=== PATIENT | female | born 1940 | race Caucasian/White ===

== ENCOUNTER → 2017-08-31 | Outpatient (CLI) | payer OTHER, BC | LOC: FIMAGING 10:35 | PROVIDERS: ATTEND Anesthesiology | DX: Z01.811 Encounter for preprocedural respiratory examination (principal); Z01.818 Encounter for other preprocedural examination; M51.26 Other intervertebral disc displacement, lumbar region ==

== ENCOUNTER 2017-09-01 05:29 | Inpatient (IN) | payer OTHER, BC ==
[2017-08-31 11:11] LABS: PLATELET COUNT 339 10^3/uL (150-400)
--- NOTE | 2017-08-31 11:52 | CPEKG ---
Heart Rate: 97 RR Interval: 619 P-R Interval: 240 QRSD Interval: 98 QT Interval: 340 QTC Interval: 432 P [place]: 54 QRS [place]: -52 T Wave [place]: 30 EKG Severity - ABNORMAL ECG - EKG Impression: SINUS RHYTHM EKG Impression: FIRST DEGREE AV BLOCK EKG Impression: LAD, CONSIDER LAFB OR INFERIOR INFARCT EKG Impression: PROBABLE LEFT VENTRICULAR HYPERTROPHY EKG Impression: ANTERIOR Q WAVES, POSSIBLY DUE TO LVH Electronically Signed By: Asim Valdez 01-Sep-2017 10:48:11
[2017-09-01] MEDS ORDERED: LR 1,000 ML IV ONE (06:08)
[2017-09-01] MEDS ORDERED: THROMBIN (BOVINE) 20,000 UNIT VIAL TP ONE (06:24)
[2017-09-01] MEDS ORDERED: BUPIVACAINE 0.25% 30 ML SDV ONE (06:24)
[2017-09-01] MEDS ORDERED: CHLORHEXIDINE GLUC HIBICLENS 118 ML BTL TP ONE (06:24)
[2017-09-01] MEDS ORDERED: CITRATE DEXTROSE SOLN 500 ML BAG ONE (06:25)
[2017-09-01] MEDS ORDERED: EPINEPHrine 1 MG/ML INJ ONE (06:25)
[2017-09-01] MEDS ORDERED: BACITRACIN 50,000 UNITS/10 ML SYR IRR ONE ×3 (06:25→11:05)
--- NOTE | 2017-09-01 06:42 | PDHPUP ---
History & Physical Update H&P update statement: This history and physical update is based on an assessment of the patient which was completed after admission or registration (within 24 hours), but prior to the surgery/procedure. H&P update: H&P reviewed & patient examined, no change in patient's condition since H&P completed
--- NOTE | 2017-09-01 06:56 | PDANEPAE ---
ANE History of Present Illness 76 yo tlif ANE Past Medical History - Cardiovascular History Hx Hypertension: Yes Hx Arrhythmias: No Hx Chest Pain: No Hx Coronary Artery / Peripheral Vascular Disease: No Hx CHF / Valvular Disease: No Hx Palpitations: No Cardiovascular History Comment: HEART BEATS TO FAST - Pulmonary History Hx COPD: No Hx Asthma/Reactive Airway Disease: No Hx Recent Upper Respiratory Infection: No Hx Oxygen in Use at Home: No Hx Sleep Apnea: No Sleep Apnea Screening Result - Last Documented: Negative Pulmonary History Comment: CHRONIC COUGH PAST YEAR HAS SEEN MULTIPLE MD'S NO DX MADE. WHEN SHE TAKES ANTIBIOTIC MAKES THE COUGH BETTER MUCOUS WAS GREEN HAS BEEN CLEAR PAST MONTH. PREV BRONCH NOT COMPLETED DO TO BLOOD PRESSURE DROPING WAS BACTERIAL INFECTION - Neurologic History Hx Cerebrovascular Accident: No Hx Seizures: No Hx Dementia: No - Endocrine History Hx Diabetes: No - Renal History Hx Renal Disorders: No - Liver History Hx Hepatic Disorders: No - Neurological & Psychiatric Hx Hx Neurological and Psychiatric Disorders: Yes Neurological / Psychiatric History Comment: DEPRESSION - Cancer History Hx Cancer: Yes Cancer History Comment: SKIN - Congenital Disorder History Hx Congenital Disorders: No - GI History Hx Gastrointestinal Disorders: Yes Gastrointestinal History Comment: INTERMITTENT REFLUX IF EATS TO LATE AT NIGHT WILL USE TUMS. CONSTIPATION WILL USE FLEETS ENEMA OR LAXATIVE - Other Health History Other Health History: NO FEELING FROM WAIST DOWN ON RT SIDE. PSORIATIC ARTHRITIS DX 1999. LAST FLARE UP YRS AGO. SJOGRENS. RHEUMATOID ARTHRITIS - Chronic Pain History Chronic Pain: Yes (LOWER LUMBAR AND ABIGAIL) - Surgical History Prior Surgeries: BRONCHOSCOPY 01/2017 IN [place]. REMVL THORACIC HARDWARE AND POST INFECTION I&D 2014. LUMBAR FUSION 04/2012. REMVL SALIVARY GLAND. REMVL ORAL CYSTS. SINUS. LT HEEL REMVL GROWTH. RT BUNION AND HAMMER TOE. LAP TRISTEN. ABIGAIL CATARACT ANE Review of Systems Review of Systems: - Exercise capacity METS (RN): 1 METS ANE Patient History - Allergies Allergies/Adverse Reactions: levofloxacin [From Levaquin] Allergy (Severe, Verified 09/28/13 15:37) Rash diphenhydramine HCl [From Benadryl] Allergy (Intermediate, Verified 09/28/13 15: 37) Other-Enter Comments sulfamethoxazole [From Bactrim] Allergy (Intermediate, Verified 09/28/13 15:37) Rash trimethoprim [From Bactrim] Allergy (Intermediate, Verified 09/28/13 15:37) Rash adhesive tape Allergy (Verified 08/30/17 10:20) Itching - Home Medications Home Medications: Metoprolol Tartrate [Lopressor 50 mg (*)] 50 mg PO BID 09/13/14 [Last Taken 08:00] Acetaminophen [Tylenol ES 500 mg (*)] 500 mg PO Q6 PRN 08/30/17 [Last Taken Unknown] Clarithromycin [Biaxin (*)] 500 mg PO BID 08/30/17 [Last Taken Unknown] DULoxetine [Cymbalta 60 MG (*)] 60 mg PO DAILY 08/30/17 [Last Taken Unknown] Hydrocodone/APAP 5/325 [[place] 5/325] 1 each PO DAILY PRN 08/30/17 [Last Taken Unknown] Melatonin [Melatonin 3 MG (*)] 15 mg PO HS 08/30/17 [Last Taken Unknown] predniSONE 5 mg PO DAILY 08/30/17 [Last Taken Unknown] riTUXimab [Rituxan 500mg (*)] 0 mg IV .[id number] 08/30/17 [Last Taken Unknown] - Smoking Hx Smoking Status: Never smoked - Family Anes Hx Family Hx Anesthesia Complications: NEG ANE Labs/Vital Signs - Labs Result Diagrams: 08/31/17 10:57 - Vital Signs Height: 5 ft 6.5 in Weight: 81.647 kg ANE Physical Exam - Airway Neck exam: FROM Mallampati Score: Class 2 Mouth exam: normal dental/mouth exam - Pulmonary Pulmonary: no respiratory distress - ASA Status ASA Status: II ANE Anesthesia Plan Anesthesia Plan: general endotracheal anesthesia
[2017-09-01] MEDS ORDERED: MIDAZOLAM 2 MG/2 ML VIAL IVP ONE (06:57)
[2017-09-01] MEDS ORDERED: PROPOFOL/EMULSION 500 MG/50 ML BOTTLE IV ONE ×2 (07:06→09:06)
[2017-09-01] MEDS ORDERED: ALBUMIN 5% 250 ML BOTTLE IV ONE (07:22)
[2017-09-01] MEDS ORDERED: fentaNYL 100 MCG/2 ML INJ IT ONE ×2 (09:00→10:45)
[2017-09-01] MEDS ORDERED: morphINE PF 1 MG/2 ML AMP IT ONE (09:00)
[2017-09-01] MEDS ORDERED: NALOXONE HCL 0.4 MG/ML INJ IVP PRN ×2 (11:38→11:53)
[2017-09-01] MEDS ORDERED: fentaNYL 100 MCG/2 ML INJ IVP PRN (11:38)
[2017-09-01] MEDS ORDERED: DIAZEPAM 5 MG/ML 1 ML SYR IVP PRN (11:38)
[2017-09-01] MEDS ORDERED: HYDROmorphONE/DILAUDID 2 MG/ML INJ IVP PRN (11:38)
[2017-09-01] MEDS ORDERED: ONDANSETRON 4 MG/2 ML VIAL IVP PRN ×2 (11:38→11:53)
[2017-09-01] MEDS ORDERED: LACTULOSE 20 GM/30 ML UDCUP PO PRN (11:53)
[2017-09-01] MEDS ORDERED: diphenhydrAMINE 25 MG CAP PO PRN (11:53)
[2017-09-01] MEDS ORDERED: ONDANSETRON DISINTEGRATING 4 MG TAB PO PRN (11:53)
[2017-09-01] MEDS ORDERED: METHOCARBAMOL 750 MG TAB PO PRN (11:53)
[2017-09-01] MEDS ORDERED: BISACODYL 10 MG SUPP PR PRN (11:53)
[2017-09-01] MEDS ORDERED: MAGNESIUM HYDROXIDE 30 ML UDCUP PO PRN (11:53)
[2017-09-01] MEDS ORDERED: morphINE PCA 30 MG/30 ML PCA IV PRN (11:53)
[2017-09-01] MEDS ORDERED: NS 1,000 ML IV SCH (12:00)
--- NOTE | 2017-09-01 12:00 | SOAPPROG ---
SOAP Progress Note Assessment/Plan: Assessment: 76 yo F sp L3-L5 hardware removal L3-S1 fusion with L5/S1 TLIF Plan: stable to 3N PT/OT LSO brace when out of bed lovenox starts POD #1 please call with neuro changes 09/01/17 11:58 Subjective: + back pain, no leg pain. Objective: Vital Signs Temp Pulse Resp BP Pulse Ox 36.7 C 73 14 133/79 H 93 09/01/17 07:19 09/01/17 07:19 09/01/17 07:19 09/01/17 07:19 09/01/17 07:19 Laboratory Results 08/31/17 10:57 somnolent PERRL, EOMI, no facial droop ALPHONSO x 4 + light touch ICD10 Worksheet Patient Problems: Problems Problem Status Onset Fusion of spine of lumbar region Acute Degenerative disc disease, lumbar Acute - ICD10 Problem Qualifiers (1) Fusion of spine of lumbar region
--- NOTE | 2017-09-01 12:01 | POSTOPPROG ---
Post Op Note Date of Operation: 09/01/17 Surgeon: Kaleb Ellison Stone Banker: Bobby Anesthesiologist: Amee Anesthesia: GET(General Endotracheal) Pre-op Diagnosis: L5/S1 DJD/HNP Post-op Diagnosis: same Indication: low back pain, leg pain, weakness Procedure: Hardware removal L3-5, L3-S1 instrumentation with L5/S1 TLIF Findings: DJD/stenosis Inf/Abcess present in the surg proc area at time of surgery?: No EBL: 50-100 Complications: None Drains: Kasi [place]
--- NOTE | 2017-09-01 12:54 | GOP ---
[f rep st] OPERATIVE REPORT DATE OF OPERATION: 09/01/2017 SURGEON: Kaleb Ellison MD NEUROSURGEON: Kaleb Ellison MD BEDSPREAD CUTTER HAND: BENJY Granados. ANESTHESIA: General endotracheal. PREOPERATIVE DIAGNOSIS: Severe adjacent level degeneration and disk space collapse with massive disk herniation at L5-S1 and cauda equina syndrome with progressive loss of neurologic function. POSTOPERATIVE DIAGNOSIS: Severe adjacent level degeneration and disk space collapse with massive dis k herniation at L5-S1 and cauda equina syndrome with progressive loss of neurologic function. PROCEDURE PERFORMED: Removal of posterior segmental (pedicle screw and axle device) fixation from L3 to L5 with re-instrumentation from L3 through S1 and exploration of spinal fusion at L1-2. Right-si ded far lateral transpedicular decompression at the L5-S1 level with a redo right L4-5 posterior collin laminectomy and foraminotomy. L5-S1 posterior/transforaminal lumbar interbody fusion with 2 structur al PEEK interbody spacers, local autograft and bone morphogenic protein. Re-instrumentation from L3 through S1 tied into the existing prior instrumentation. Posterior lateral fusion at L5-S1, with loc al autograft and bone morphogenic protein. Use of intraoperative microscopy, fluoroscopy and compute r volumetric stereotactic navigation with intraoperative neurophysiologic testing. Injection of intr athecal narcotic analgesics and subcutaneous and intramuscular local anesthesia for postoperative alexis n control. FINDINGS: ESTIMATED BLOOD LOSS: 250 cc. INDICATIONS: The patient is a 76-year-old woman with intractable right greater than left lower extre mity radicular and neurogenic claudication symptoms and loss of motor function, as well as bladder dy sfunction secondary to a massive L5-S1 disk herniation at the adjacent level, status post a prior mul tilevel thoracolumbar fusion extending down to L5 with instrumentation. The patient presents now for urgent surgical decompression, stabilization, and extension of the fusion from the upper levels. DESCRIPTION OF PROCEDURE: After informed consent was obtained, the patient was taken to the operatin g room and placed in the prone position on the Kasi table. The thoracolumbosacral area was preppe d and draped in a sterile fashion. After fluoroscopic localization of the correct level, the subcuta neous and intramuscular tissues were infiltrated with local anesthesia. A midline linear incision wa s then created from approximately L3-S1. This was carried down to the fascial layer, which was then incised using monopolar electrocautery and carried in a subperiosteal plane along the spinous process es and lamina bilaterally. Intraoperative fluoroscopy was again utilized to verify the correct level s. Following this, the dissection was carried out over the facet joints at L5-S1 and over the screws and rods at the upper levels to L3. There was a gap in the senthil between L2 and L3 that allowed for p lacing connecting devices, and the rods were cut just above L3. Following this, the extensive scar t issue was carefully dissected out and, under high-power microscopy, a right-sided L5-S1 far lateral t ranspedicular decompression was performed with complete unroofing of the facet joint and neural ac hector at both L5 and S1. A redo posterior hemilaminectomy and foraminotomy was performed at the L4-5 l evel on the right as well. The microscope was angled across the midline and bilateral decompression was performed. The [place] 4 was utilized to carefully retract the S1 and L5 nerve roots in order t o identify the massive disk herniation that was extruded rostrally, caudally and posteriorly into the axilla of the nerve root, as well as the shoulder, and basically everywhere. This was extremely lar ge and was meticulously removed in all areas for a complete decompression of the thecal sac and bilat eral nerve roots. Following this, the wound was copiously irrigated with antibiotic irrigation, and meticulous hemostasis was achieved. The [employer] neuronavigational system was then brought in, and us ing computer volumetric stereotactic navigation, the pedicles were placed at L3, L4, L5 and S1. Each individual screw was tested neurophysiologically with monopolar electrostimulation and interpretatio n of the potentials by the surgeon. Rods were then placed across the L5-S1 levels under distraction, during which time a complete diskectomy was performed with preparation of endplates and placement of two 8 mm structural PEEK interbody spacers, along with bone morphogenic protein and morselized autog raft. Note that it was very difficult to place the graft due to the amount of collapse, and in placi ng the 2nd graft the 1st graft popped forward slightly, anterior to the spine. I felt that it was in the best interest of the patient to leave it there, based on past experience with this and as well a s publishing, and to obtain a CT scan postoperatively to evaluate any vascular compression or other i ssues. The small rods were then removed at the L5-S1 level, and a larger senthil extending from L3-S1 wi th the connection devices connecting to the prior senthil extending more rostrally. These were all torqu ed to the heat treating furnace tender's specifications, and the wound was again copiously irrigated with antibiotic irrigation. Meticulous hemostasis was achieved. The remaining lamina and facet joints, mainly on th e left at the L5-S1 level, were extensively decorticated, and the residual local autograft along with bone morphogenic protein was placed at the L5-S1 level and also extending up into the L4 and L3 leve ls so as to tie it into the existing fusion. An axial device was placed at the L5-S1 level for added fixation and to avoid junctional kyphosis. A drain was placed. The wound was closed in layered fas hion using interrupted Vicryl sutures, followed by Steri-Strips on the skin. COMPLICATIONS: None. DISPOSITION: The patient is currently in the process of being repositioned for extubation. Note jumana t I placed 200 mcg of Duramorph along with 50 mcg of fentanyl intrathecally for postoperative pain co ntrol. /[id number]/MODL
--- NOTE | 2017-09-01 13:29 | POSTANESTH ---
Post Anesthetic Evaluation Cardiovascular Status: Normal, Stable Respiratory Status: Similar to Pre-op Cond. Level of Consciousness/Mental Status: Can Participate in Eval Pain Control: Adequate, Prn Tx Ordered Nausea/Vomiting Control: Adequate, Prn Tx Ordered Complications Possibly Related to Anesthesia: None Noted
[2017-09-01] MEDS: ceFAZolin 2 GM/DEXTROSE 100 ML IV SCH ×2 (13:46→22:45)
[2017-09-01] MEDS: GABAPENTIN 300 MG CAP PO SCH ×2 (13:49→22:46)
[2017-09-01] MEDS: ACETAMINOPHEN 500 MG TAB PO SCH ×2 (13:51→22:45)
[2017-09-01] MEDS ORDERED: ceFAZolin 2 GM/DEXTROSE 100 ML IV SCH ×2 (14:00)
--- NOTE | 2017-09-01 15:05 | PDMN ---
Medical Necessity Medical necessity: [facility] IP only surgery; cpt 82460 L5/S1 TLIF w/L3-5 hardware removal
[2017-09-01] MEDS: POLYETHYLENE GLYCOL 3350 17 GM PKT PO SCH ×2 (15:26→22:46)
[2017-09-01] MEDS: morphINE SR 15 MG TAB PO SCH (22:44)
[2017-09-01] MEDS: FAMOTIDINE 20 MG TAB PO SCH (22:44)
[2017-09-01] MEDS: SENNOSIDES/DOCUSATE SODIUM TAB PO SCH (22:45)
[2017-09-02 05:29] LABS: PLATELET COUNT 242 10^3/uL (150-400)
[2017-09-02] MEDS: ACETAMINOPHEN 500 MG TAB PO SCH ×3 (05:41→21:13)
[2017-09-02] MEDS: GABAPENTIN 300 MG CAP PO SCH ×3 (05:41→21:11)
--- NOTE | 2017-09-02 07:27 | NEUSURGPN ---
Date of Surgery: 09/01/17 Post Op Day: 1 Assessment/Plan: 76 yo female s/p L3-L5 hardware removal and L3-S1 fusion with TLIF at L5/S1, history of T10-L5 fusion - neuro checks - pain control - PT/OT - wear brace when out of bed - postop x-rays pending - BRITTANY drain x 1 - SCDs/TEDs, Lovenox - contact neurosurgery with any changes in neuro status/exam Subjective: No lower extremity pain, numbness, tingling. Admits to localized back pain. Objective: Awake. Alert. PERRL. EOMI Facial expression symmetrical Muscle strength full at 5/5 Sensation intact - Physician Discussed Patient with : [facility] Physical Exam - Vitals, I&O, Labs I and O 09/01/17 09/02/17 09/03/17 05:59 05:59 05:59 Intake Total 2200 Output Total 2115 Balance 85 Weight 81.647 kg Intake: Oral (ml) 200 IV Intake (ml) 2000 Output: Urine (ml) 1550 Catheter 1550 Estimated Blood Loss (ml) 200 BRITTANY Drain Output (ml) 365 #1 Posterior Back Kasi 365 [place] Other: Intake Quantity Yes Sufficient Vital Signs Temp Pulse Resp BP Pulse Ox 36.7 C 82 18 107/75 97 09/02/17 04:11 09/02/17 04:11 09/02/17 04:11 09/02/17 04:11 09/02/17 04:11 Laboratory Results 09/02/17 04:40 09/02/17 04:40 ICD10 Worksheet Patient Problems: Problems Problem Status Onset Fusion of spine of lumbar region Acute Degenerative disc disease, lumbar Acute
[2017-09-02] MEDS: ENOXAPARIN 40 MG/0.4 ML SYR SC SCH (09:01)
[2017-09-02] MEDS: morphINE SR 15 MG TAB PO SCH ×2 (09:02→21:13)
[2017-09-02] MEDS: DULoxetine 60 MG CAP PO SCH (09:02)
[2017-09-02] MEDS: FAMOTIDINE 20 MG TAB PO SCH ×3 (09:03→21:23)
[2017-09-02] MEDS: SENNOSIDES/DOCUSATE SODIUM TAB PO SCH ×2 (09:03→21:12)
[2017-09-02] MEDS: predniSONE 5 MG TAB PO SCH (09:03)
[2017-09-02] MEDS: POLYETHYLENE GLYCOL 3350 17 GM PKT PO SCH ×4 (09:07→21:30)
[2017-09-02] MEDS: METOPROLOL TARTRATE 50 MG TAB PO SCH ×2 (09:51→21:13)
--- NOTE | 2017-09-02 11:26 | ASMTCASEMG ---
Living Arrangements What is your living Answers: With Spouse arrangement? Who do you live with? Type Of Residence What kind of residence do Answers: House you live in? Discharge Plan Comments Coordination Status Comments Notes: CM met w/ pt, pts and daughter for dispo planning. PT is recommending home w/ 24hr supervision. Pts daughter reports that someone will be w/ pt at all times. Pt will continue to work w/ therapies during her time here. Pt is from [place], [place]. CM available for changes. Plan: Independent Date Signed: 09/02/2017 11:26 AM Electronically Signed By:LLOYD Ochoa
[2017-09-02] MEDS: MELATONIN 3 MG TAB PO SCH ×2 (21:11→21:22)
[2017-09-03] MEDS: ACETAMINOPHEN 500 MG TAB PO SCH ×3 (05:19→22:00)
[2017-09-03] MEDS: GABAPENTIN 300 MG CAP PO SCH ×3 (05:20→22:00)
--- NOTE | 2017-09-03 09:31 | SOAPPROG ---
SOAP Progress Note Assessment/Plan: Assessment: 76 yo F POD #2 L3-L5 hardware removal L3-S1 fusion with L5/S1 TLIF Plan: stable and doing well overall :) scd/kandy/lovenox for dvt prophylaxis PT/OT LSO brace when out of bed post op x-rays look good patient will likely need Snf rehab in [place] please call with neuro changes discussed with Dr Post 09/01/17 11:58 09/03/17 09:28 Subjective: back pain improving, leg numbness improving. Objective: Vital Signs Temp Pulse Resp BP Pulse Ox 37.2 C 98 18 120/73 95 09/03/17 04:11 09/03/17 04:11 09/03/17 04:11 09/03/17 04:11 09/03/17 04:11 Laboratory Results 09/02/17 04:40 09/02/17 04:40 09/02/17 09/03/17 09/04/17 05:59 05:59 05:59 Intake Total 2200 1800 Output Total 2115 2718 Balance 85 -918 AAOx4, +FC PERRL, EOMI, no facial droop 5/5 except bilat DF 4/5, right PF 4/5 + light touch C/D/I ICD10 Worksheet Patient Problems: Problems Problem Status Onset Fusion of spine of lumbar region Acute Degenerative disc disease, lumbar Acute - ICD10 Problem Qualifiers (1) Fusion of spine of lumbar region
[2017-09-03] MEDS: DULoxetine 60 MG CAP PO SCH (09:38)
[2017-09-03] MEDS: ENOXAPARIN 40 MG/0.4 ML SYR SC SCH (09:38)
[2017-09-03] MEDS: FAMOTIDINE 20 MG TAB PO SCH ×2 (09:39→22:00)
[2017-09-03] MEDS: predniSONE 5 MG TAB PO SCH (09:39)
[2017-09-03] MEDS: SENNOSIDES/DOCUSATE SODIUM TAB PO SCH ×2 (09:39→22:03)
[2017-09-03] MEDS: POLYETHYLENE GLYCOL 3350 17 GM PKT PO SCH ×3 (09:40→22:04)
[2017-09-03] MEDS: METOPROLOL TARTRATE 50 MG TAB PO SCH ×2 (09:42→22:00)
[2017-09-03] MEDS: morphINE SR 15 MG TAB PO SCH ×2 (09:45→22:03)
[2017-09-03] MEDS: METHOCARBAMOL 500 MG TAB PO PRN (14:52)
--- NOTE | 2017-09-03 18:38 | ASMTCMCOM ---
CM Note CM Note Notes: Reviewed chart, spoke with PARESH Lion regarding discharge plan of care, pt's progress. Per Amisha, pt to discharge in next few days, pt and family requesting SNF placement in [place], [place]. Spoke with pt's , Aime and dghtrNayeli. Family requesting a transfer to [facility] in [place], [place] . Call placed to Lurdes Fung to verify Medicare rules regarding family transfer to facility in another location and/or out of state. Per Lurdes, pt able to transfer if facility is willing to accept and with a PCP to provide additional orders. Per , pt's PCP is Dr. Meraz in [place], [place] . Call placed to [facility]. Per organ recovery coordinator, [facility] is a hospital with an acute inpt rehab - pt must meet certain qualifications for inpt rehab. Update provided to family. Per family, facility also has a SNF. Family would like to see pt transfer in next day or so - pt's dghtr has to return to work on Tuesday09/06/17. Call placed to hospitalist line at [facility] , spoke with amelia [facility] admin. Per Siva, he knows the family and feels she will likely qualify. Siva states UR/admissions is unavailable to accept/authorize transfer until Tuesday09/06/17. UR number obtained. CM to contact Jenni on Tuesday09/06/17 at . Referral and orders can be faxed to . If Jenni is unavailable, CM can contact Hector, the UR data assistant at . amelia [place] admin can be reached at . Siva said he will attempt to start authorization/admission process sooner and will contact CM on Tuesday09/04/17 with an update. Update provided to pt and family. CM to call gennaro Tyler with any further questions. CM will continue to follow. Current Discharge Plan: [facility], [facility] Date Signed: 09/03/2017 06:38 PM Electronically Signed By:Clara Nguyen RN
[2017-09-03] MEDS: MELATONIN 3 MG TAB PO SCH (22:03)
[2017-09-04] MEDS: GABAPENTIN 300 MG CAP PO SCH ×3 (05:49→21:02)
[2017-09-04] MEDS: oxyCODONE IR 5 MG TAB PO PRN ×2 (05:51→22:52)
[2017-09-04] MEDS: ACETAMINOPHEN 500 MG TAB PO SCH ×3 (06:04→21:01)
--- NOTE | 2017-09-04 07:00 | SOAPPROG ---
SOAP Progress Note Assessment/Plan: Assessment: 76 yo F POD #3 L3-L5 hardware removal L3-S1 fusion with L5/S1 TLIF Plan: stable and doing well overall :) scd/kandy/lovenox for dvt prophylaxis PT/OT LSO brace when out of bed post op x-rays look good patient will likely need Snf rehab in [place] please call with neuro changes discussed with Dr Post 09/01/17 11:58 09/03/17 09:28 09/04/17 06:59 Subjective: back pain improving, no leg pain, paresthesias stable Objective: Vital Signs Temp Pulse Resp BP Pulse Ox 37.2 C 74 16 117/63 95 09/03/17 23:40 09/03/17 23:40 09/03/17 23:40 09/03/17 23:40 09/03/17 23:40 Laboratory Results 09/02/17 04:40 09/02/17 04:40 09/03/17 09/04/17 09/05/17 05:59 05:59 05:59 Intake Total 1800 Output Total 2298 820 Balance -918 -820 AAOx4, +FC PERRL, EOMI, no facial droop 5/5 except bilat Df 4/5, right PF 4/5 + light touch C/D/I ICD10 Worksheet Patient Problems: Problems Problem Status Onset Fusion of spine of lumbar region Acute Degenerative disc disease, lumbar Acute - ICD10 Problem Qualifiers (1) Fusion of spine of lumbar region
[2017-09-04] MEDS: morphINE SR 15 MG TAB PO SCH ×2 (08:53→21:06)
[2017-09-04] MEDS: FAMOTIDINE 20 MG TAB PO SCH ×2 (08:54→21:03)
[2017-09-04] MEDS: DULoxetine 60 MG CAP PO SCH (08:54)
[2017-09-04] MEDS: SENNOSIDES/DOCUSATE SODIUM TAB PO SCH ×2 (08:54→21:06)
[2017-09-04] MEDS: predniSONE 5 MG TAB PO SCH (08:55)
[2017-09-04] MEDS: METOPROLOL TARTRATE 50 MG TAB PO SCH ×2 (08:55→21:02)
[2017-09-04] MEDS: ENOXAPARIN 40 MG/0.4 ML SYR SC SCH (08:58)
[2017-09-04] MEDS: POLYETHYLENE GLYCOL 3350 17 GM PKT PO SCH ×2 (10:23→15:05)
[2017-09-04] MEDS: METHOCARBAMOL 500 MG TAB PO PRN (18:25)
--- NOTE | 2017-09-04 18:50 | ASMTCMCOM ---
CM Note CM Note Notes: Reviewed chart, spoke with PARESH Lion regarding discharge plan of care, pt's progress. Met with pt and family to discuss plan. Updates provided re [facility] being unable to accept/evaluate pt until Tuesday09/06/17. Discussed alternate options with family - other facilities, home health care. Pt and family wishing to return home with no additional services on Tuesday09/05/17. Pt wishing to leave early due to eight-plus hour drive home. Discussed plan with PASTORA Minaya - [place] in agreement with plan. Update provided to PARESH Lion. CM will continue to follow for any potential issues or concerns. Current Discharge Plan: Home independently with family support and outpt PT Date Signed: 09/04/2017 06:50 PM Electronically Signed By:Clara Nguyen RN
[2017-09-04] MEDS: MELATONIN 3 MG TAB PO SCH (22:47)
[2017-09-05] MEDS: POLYETHYLENE GLYCOL 3350 17 GM PKT PO SCH ×2 (01:52→08:56)
[2017-09-05] MEDS: ACETAMINOPHEN 500 MG TAB PO SCH (06:13)
[2017-09-05] MEDS: GABAPENTIN 300 MG CAP PO SCH (06:13)
[2017-09-05 08:38] VITALS: BP 102/56
[2017-09-05] MEDS: ENOXAPARIN 40 MG/0.4 ML SYR SC SCH (08:48)
[2017-09-05] MEDS: DULoxetine 60 MG CAP PO SCH (08:48)
[2017-09-05] MEDS: FAMOTIDINE 20 MG TAB PO SCH (08:49)
[2017-09-05] MEDS: predniSONE 5 MG TAB PO SCH (08:49)
[2017-09-05] MEDS: METOPROLOL TARTRATE 50 MG TAB PO SCH (08:51)
[2017-09-05] MEDS: SENNOSIDES/DOCUSATE SODIUM TAB PO SCH (08:56)
[2017-09-05] MEDS: morphINE SR 15 MG TAB PO SCH (08:56)
--- NOTE | 2017-09-05 10:50 | SOAPPROG ---
SOAP Progress Note Assessment/Plan: Assessment: 76 yo F POD #4 L3-L5 hardware removal L3-S1 fusion with L5/S1 TLIF Plan: stable and doing well overall :) scd/kandy/lovenox for dvt prophylaxis PT/OT LSO brace when out of bed post op x-rays look good remove Josef today dc home today please call with neuro changes discussed with Dr Post 09/01/17 11:58 09/03/17 09:28 09/04/17 06:59 09/05/17 10:47 Subjective: minimal back pain, leg pain improving. Objective: Vital Signs Temp Pulse Resp BP Pulse Ox 36.7 C 86 16 102/56 L 90 L 09/05/17 08:00 09/05/17 08:51 09/05/17 08:00 09/05/17 08:51 09/05/17 08:00 Laboratory Results 09/02/17 04:40 09/02/17 04:40 09/04/17 09/05/17 09/06/17 05:59 05:59 05:59 Intake Total 1300 Output Total 820 100 40 Balance -820 1200 -40 AAOx4, +FC PERRL, EOMI 5/5 except DF 4/5, right PF 4/5 + light touch C/D/I ICD10 Worksheet Patient Problems: Problems Problem Status Onset Fusion of spine of lumbar region Acute Degenerative disc disease, lumbar Acute - ICD10 Problem Qualifiers (1) Fusion of spine of lumbar region
[2017-09-05] MEDS: oxyCODONE IR 5 MG TAB PO PRN (11:37)
[2017-09-05] MEDS: METHOCARBAMOL 500 MG TAB PO PRN (11:37)
--- NOTE | 2017-09-05 12:08 | ASDISCHSUM ---
Discharge Information Plan Status:Home with No Needs Medically Cleared to Leave:09/05/2017 Discharge Date:09/05/2017 11:44 AM CM D/C Disposition:Home, Routine, Self-Care ADT D/C Disposition:Home, Routine, Self-Care Projected Discharge Date:09/05/2017 11:44 AM Transportation at D/C:Family Discharge Delay Reason: Follow-Up Date:09/05/2017 11:44 AM Discharge Slot: Final Diagnosis: Placement Information Patient Contact Information Contact Name:VIRGEN Relationship:Daughter Address: City: [facility] Phone: [facility] Code: Email: Financial Information Financial Class:Medicare Primary Plan Desc:MEDICARE INPATIENT Primary Plan Number:[id number] Secondary Plan Desc:[facility] Secondary Plan Number:[id number] Assessment Information LACE LACE Length of stay for Answers: 4-6 days current admission Acuity / Level of Answers: Yes Care: Did the patient have an inpatient admission? # of Emergency department Answers: 0 visits in the last 6 months Score: 7 Date Signed: 09/05/2017 12:07 PM Electronically Signed By:MADDIE Rogers [facility] Initial CM Assessment Living Arrangements What is your living Answers: With Spouse arrangement? Who do you live with? Type Of Residence What kind of residence do Answers: House you live in? Discharge Plan Comments Coordination Status Comments Notes: CM met w/ pt, pts and daughter for dispo planning. PT is recommending home w/ 24hr supervision. Pts daughter reports that someone will be w/ pt at all times. Pt will continue to work w/ therapies during her time here. Pt is from [place], [place]. CM available for changes. Plan: Independent Date Signed: 09/02/2017 11:26 AM Electronically Signed By:LLOYD Ochoa [facility] Progress Note CM Note CM Note Notes: Reviewed chart, spoke with PARESH Lion regarding discharge plan of care, pt's progress. Per Amisha, pt to discharge in next few days, pt and family requesting SNF placement in [place], [place]. Spoke with pt's , Aime and dghtr, Nayeli. Family requesting a transfer to [facility] in [place], [place] . Call placed to Lurdes Fung to verify Medicare rules regarding family transfer to facility in another location and/or out of state. Per Lurdes, pt able to transfer if facility is willing to accept and with a PCP to provide additional orders. Per , pt's PCP is Dr. Meraz in [place], [place] . Call placed to [facility]. Per precision farming coordinator, [facility] is a hospital with an acute inpt rehab - pt must meet certain qualifications for inpt rehab. Update provided to family. Per family, facility also has a SNF. Family would like to see pt transfer in next day or so - pt's dghtr has to return to work on Tuesday09/06/17. Call placed to hospitalist line at [facility] , spoke with amelia Paniaguaequipment operator warehouse. Per Siva, he knows the family and feels she will likely qualify. Siva states [facility]/admissions is unavailable to accept/authorize transfer until Tuesday09/06/17. UR number obtained. CM to contact Jenni on Tuesday09/06/17 at . Referral and orders can be faxed to . If Jenni is unavailable, CM can contact Hector, the [facility] nursing assistants teacher at . amelia Paniaguaequipment operator warehouse can be reached at . Siva said he will attempt to start authorization/admission process sooner and will contact CM on Tuesday09/04/17 with an update. Update provided to pt and family. CM to call gennaro Tyler with any further questions. CM will continue to follow. Current Discharge Plan: [facility], [facility] Date Signed: 09/03/2017 06:38 PM Electronically Signed By:Clara Nguyen RN [facility] Progress Note CM Note CM Note Notes: Reviewed chart, spoke with PARESH Lion regarding discharge plan of care, pt's progress. Met with pt and family to discuss plan. Updates provided re [facility] being unable to accept/evaluate pt until Tuesday09/06/17. Discussed alternate options with family - other facilities, home health care. Pt and family wishing to return home with no additional services on Tuesday09/05/17. Pt wishing to leave early due to eight-plus hour drive home. Discussed plan with PASTORA Minaya - Marimar in agreement with plan. Update provided to PARESH Lion. CM will continue to follow for any potential issues or concerns. Current Discharge Plan: Home independently with family support and outpt PT Date Signed: 09/04/2017 06:50 PM Electronically Signed By:Clara Nguyen RN Intervention Information
== END 2017-09-05 11:44 | disposition home or self-care (01) | DRG 460 ==
LOC: F3N 05:29
PROVIDERS: ADMIT Neurological Surgery; ATTEND Neurological Surgery
PROC: 0QP004Z Removal of Internal Fixation Device from Lumbar Vertebra, Open Approach (ICD-10-PCS; principal; 2017-09-01 07:15)
PROC: 0SG10AJ Fusion of 2 or more Lumbar Vertebral Joints with Interbody Fusion Device, Posterior Approach, Anterior Column, Open Approach (ICD-10-PCS; principal; 2017-09-01 07:15)
PROC: 0SG30AJ Fusion of Lumbosacral Joint with Interbody Fusion Device, Posterior Approach, Anterior Column, Open Approach (ICD-10-PCS; principal; 2017-09-01 07:15)
PROC: 0ST40ZZ Resection of Lumbosacral Disc, Open Approach (ICD-10-PCS; principal; 2017-09-01 07:15)
PROC: 01NB0ZZ Release Lumbar Nerve, Open Approach (ICD-10-PCS; principal; 2017-09-01 07:15)
PROC: 3E0U0GB Introduction of Recombinant Bone Morphogenetic Protein into Joints, Open Approach (ICD-10-PCS; principal; 2017-09-01 07:15)
DX: M51.17 Intervertebral disc disorders with radiculopathy, lumbosacral region (principal); Z98.1 Arthrodesis status
CPT/HCPCS: 97116-GP; 97161-GP; 97166-GO; 97530-GO; 97530-GP; 97535-GO; C1713; G8978-GP-CK; G8979-GP-CI; G8987-GO-CK; G8988-GO-CI; J0171; J0690; J1650; J2250; J2274; J2704; J3010; J7060; J7512; P9041

== ENCOUNTER 2017-12-15 05:38 | Inpatient (IN) | payer OTHER, BC ==
[2017-12-15] MEDS ORDERED: TRANEXAMIC ACID 1,000 MG in NS 100 ML IV ONE (06:00)
[2017-12-15] MEDS ORDERED: morphINE PF 0.2 MG in SYRINGE INTRATHECAL 1 SYR IT ONE (06:06)
[2017-12-15] MEDS ORDERED: ACETAMINOPHEN 500 MG TAB PO ONE (06:06)
[2017-12-15] MEDS ORDERED: GABAPENTIN 300 MG CAP PO ONE (06:06)
[2017-12-15] MEDS ORDERED: ceFAZolin 2 GM/DEXTROSE 100 ML IV ONE (06:06)
[2017-12-15] MEDS ORDERED: fentaNYL 50 MCG in SYRINGE INTRATHECAL 1 SYR IT ONE (06:06)
[2017-12-15] MEDS ORDERED: LR 1,000 ML IV ONE (06:08)
[2017-12-15] MEDS ORDERED: LIDOCAINE 1% 2 ML INJ ID PRN (06:08)
[2017-12-15] MEDS ORDERED: MIDAZOLAM 2 MG/2 ML VIAL IVP ONE (07:05)
--- NOTE | 2017-12-15 07:07 | PDANEPAE ---
ANE History of Present Illness spinal stenosis ANE Past Medical History - Cardiovascular History Hx Hypertension: Yes Hx Arrhythmias: No Hx Chest Pain: No Hx Coronary Artery / Peripheral Vascular Disease: No Hx CHF / Valvular Disease: No Hx Palpitations: No Cardiovascular History Comment: HEART BEATS TO FAST. seeing vat tender tomorrow, 12/08/17 - bilat leg edema - Pulmonary History Hx COPD: No Hx Asthma/Reactive Airway Disease: No Hx Recent Upper Respiratory Infection: No Hx Oxygen in Use at Home: No Hx Sleep Apnea: No Sleep Apnea Screening Result - Last Documented: Negative Pulmonary History Comment: Went to [facility] 09/09/17 for a chronic cough. Doesn't recall MD's name. Was told was aspirating food. States has "blown out back due to coughing so hard" - Neurologic History Hx Cerebrovascular Accident: No Hx Seizures: No Hx Dementia: No Neurologic History Comment: Had Cervical MRI at [facility] and 'nothing to worry about' - Endocrine History Hx Diabetes: Yes Endocrine History Comment: recent dx of diabetes - Renal History Hx Renal Disorders: No Renal History Comment: UTI in past 2 months - Liver History Hx Hepatic Disorders: No - Neurological & Psychiatric Hx Hx Neurological and Psychiatric Disorders: Yes Neurological / Psychiatric History Comment: DEPRESSION - Cancer History Hx Cancer: Yes Cancer History Comment: SKIN, 1978 - Congenital Disorder History Hx Congenital Disorders: No - GI History Hx Gastrointestinal Disorders: Yes Gastrointestinal History Comment: hemorrhoids. reflux dx - will take tums. CONSTIPATION WILL USE FLEETS ENEMA OR LAXATIVE - Other Health History Other Health History: NO FEELING FROM WAIST DOWN ON RT SIDE. PSORIATIC ARTHRITIS DX 1999. LAST FLARE UP YRS AGO. SJOGRENS SYNDROME - dry eyes as a result. RHEUMATOID ARTHRITIS - Chronic Pain History Chronic Pain: Yes (low back, legs, & hemorrhoids) - Surgical History Prior Surgeries: Lumbar fusion 08/2017. BRONCHOSCOPY 01/2017 IN [place]. REMVL THORACIC HARDWARE AND POST INFECTION I&D 2014. LUMBAR FUSION 04/2012. REMVL SALIVARY GLAND. REMVL ORAL CYSTS. SINUS. LT HEEL REMVL GROWTH. RT BUNION AND HAMMER TOE. LAP TRISTEN. ABIGAIL CATARACT ANE Review of Systems Review of Systems: - Exercise capacity METS (RN): 2 METS ANE Patient History - Allergies Allergies/Adverse Reactions: levofloxacin [From Levaquin] Allergy (Severe, Verified 12/15/17 06:17) Rash diphenhydramine HCl [From Benadryl] Allergy (Intermediate, Verified 12/15/17 06: 17) RESTLESS LEGS sulfamethoxazole [From Bactrim] Allergy (Intermediate, Verified 12/15/17 06:17) Rash trimethoprim [From Bactrim] Allergy (Intermediate, Verified 12/15/17 06:17) Rash adhesive tape Allergy (Verified 12/15/17 06:17) Itching - Home Medications Home Medications: Metoprolol Tartrate [Lopressor 50 mg (*)] 50 mg PO BID 09/13/14 [Last Taken 09/26 04:30] Acetaminophen [Tylenol ES 500 mg (*)] 500 mg PO Q6HRS PRN 08/30/17 [Last Taken 12/14/17 19:00] riTUXimab [Rituxan 500mg (*)] 0 mg IV .[id number] 08/30/17 [Last Taken 05/18/17] Calcium Carbonate [Oyster Shell Calcium 500 mg (*)] 500 mg PO DAILY 12/02/17 [ Last Taken 12/08/17] Cyanocobalamin [Vitamin B12 (*)] 1,000 mcg PO DAILY 12/02/17 [Last Taken ] Gabapentin [Neurontin 300 MG (*)] 300 mg PO TID 12/02/17 [Last Taken 12/13/17] Tobramycin 0.3% [Tobrex 0.3% opht drops (*)] 1 drops EACHEYE QID 12/02/17 [Last Taken 12/14/17] metFORMIN HCL [Glucophage 500 mg (*)] 500 mg PO BIDMEAL 12/02/17 [Last Taken 08/26 08:00] oxyCODONE IR [Oxycodone Ir (*)] 5 mg PO DAILY PRN 12/02/17 [Last Taken 12/14/17 22:00] traMADol [Ultram 50 mg (*)] 50 mg PO DAILY PRN 12/02/17 [Last Taken 12/01/17] - NPO status NPO Since - Liquids (Date): 12/14/17 NPO Since - Liquids (Time): 21:45 NPO Since - Solids (Date): 12/14/17 NPO Since - Solids (Time): 15:00 - Smoking Hx Smoking Status: Never smoked - Family Anes Hx Family Hx Anesthesia Complications: NEG ANE Labs/Vital Signs - Labs Result Diagrams: 12/14/17 15:12 - Vital Signs Blood Pressure: 143/91 Heart Rate: 96 Respiratory Rate: 16 O2 Sat (%): 95 Height: 167.64 cm Weight: 87.09 kg ANE Physical Exam - Airway Neck exam: FROM Mallampati Score: Class 1 Mouth exam: normal dental/mouth exam - Pulmonary Pulmonary: no respiratory distress - Cardiovascular Cardiovascular: regular rate and rhythym - ASA Status ASA Status: III ANE Anesthesia Plan Anesthesia Plan: general endotracheal anesthesia Lines/Monitors: arterial line
[2017-12-15] MEDS ORDERED: HYDROmorphONE/DILAUDID 2 MG/ML INJ ONE (07:16)
[2017-12-15] MEDS ORDERED: REMIFENTANIL HCL 1 MG VIAL ONE (07:16)
[2017-12-15] MEDS ORDERED: KETAMINE 200 MG/20 ML VIAL ONE (07:16)
[2017-12-15] MEDS ORDERED: fentaNYL 100 MCG/2 ML INJ ONE ×3 (07:16→11:20)
[2017-12-15] MEDS ORDERED: PROPOFOL 200 MG/20 ML VIAL ONE (07:17)
[2017-12-15] MEDS ORDERED: PROPOFOL/EMULSION 500 MG/50 ML BOTTLE IV ONE (07:23)
[2017-12-15] MEDS ORDERED: CITRATE DEXTROSE SOLN 500 ML BAG ONE ×3 (08:03→14:41)
[2017-12-15] MEDS ORDERED: CHLORHEXIDINE GLUC HIBICLENS 118 ML BTL TP ONE (08:04)
[2017-12-15] MEDS ORDERED: BACITRACIN 50,000 UNITS/10 ML SYR IRR ONE ×4 (08:04→13:43)
[2017-12-15] MEDS ORDERED: BUPIVACAINE 0.25% 30 ML SDV ONE (08:04)
[2017-12-15] MEDS ORDERED: THROMBIN (BOVINE) 20,000 UNIT VIAL TP ONE (08:04)
[2017-12-15] MEDS ORDERED: EPINEPHrine 1 MG/ML INJ ONE (08:07)
[2017-12-15] MEDS ORDERED: ePHEDrine SULFATE 25 MG/5 ML SYR ONE (11:20)
[2017-12-15] MEDS ORDERED: ROCURONIUM 50 MG/5 ML VIAL ONE (11:20)
[2017-12-15] MEDS ORDERED: PHENYLEPHRINE 10 MG/ML SDV ONE (11:20)
[2017-12-15] MEDS ORDERED: POLYMYXIN B SULFATE 500,000 UNIT/10 ML SYR IRR ONE (13:04)
--- NOTE | 2017-12-15 13:39 | POSTOPPROG ---
Post Op Note Date of Operation: 12/15/17 Surgeon: Aime Loya Activity Manager: Kaleb Ellison Anesthesiologist: Ernesto Lemus Anesthesia: GET(General Endotracheal) Pre-op Diagnosis: Lumbar DJD with radiculopathy Post-op Diagnosis: Same Procedure: Anterior retroperitoneal spinal exposure Findings: Extensive fibrosis along iliac artery/vein Inf/Abcess present in the surg proc area at time of surgery?: No EBL: Minimal Complications: no immediate
--- NOTE | 2017-12-15 13:45 | GOP ---
DATE OF OPERATION: 12/15/2017 SURGEON: Kaleb Ellison MD VIDEO MANAGER: Wilbert Rosales PA-C. ANESTHESIA: General endotracheal. PREOPERATIVE DIAGNOSIS: 1. 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 2. Intractable back pain and right greater than left lower extremity radiculopathy. 3. Failed conservative care. 4. High risk surgical candidate. 5. Failure/loosening. POSTOPERATIVE DIAGNOSIS: 1. 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 2. Intractable back pain and right greater than left lower extremity radiculopathy. 3. Failed conservative care. 4. High risk surgical candidate. 5. Failure/loosening. PROCEDURE PERFORMED: 1. Removal of posterior segmental (pedicle screws and Axial device) fixation from L3 to S1 with expl oration of spinal fusion at T12 to L3. 2. Use of intraoperative microscopy and fluoroscopy. FINDINGS: ESTIMATED BLOOD LOSS: 100 cc. DESCRIPTION OF PROCEDURE: After informed consent was obtained, the patient was taken to the operatin g room and placed in the prone position on Kasi table. The thoracolumbosacral areas were prepped and draped in sterile fashion. After fluoroscopic localization of correct levels, the subcutaneous a nd intramuscular tissues were infiltrated with local anesthesia. A midline linear incision was then created from approximately T12 to S1. This was carried down to the fascial layer, which was then inc ised using monopolar electrocautery and carried in a subperiosteal plane along the spinous processes and out to lamina bilaterally. The prior instrumentation was identified and disconnected at the L2-3 level. The rods and screws were all removed along with the locking caps. The fusion up higher from T12 to L3 was carefully inspected and appeared to be solid. An Axial device was also removed at the L5-S1 level. The wound was copiously irrigated with antibiotic irrigation. Meticulous hemostasis w as achieved. The wound was then temporarily closed with running Vicryl sutures and Ioban. COMPLICATIONS: None. INDICATIONS FOR PROCEDURE: The patient is a 77-year-old woman with intractable low back pain and rig ht lower extremity radiculopathy secondary to a nonunion at the L5-S1 level status post prior T10 to S1 fusion with instrumentation. She presents now for hardware removal and revision and placement of anterior-posterior reconstruction. DISPOSITION: The patient was repositioned for the anterior portion of the operation. /[id number]/MODL
--- NOTE | 2017-12-15 13:50 | GOP ---
DATE OF OPERATION: 12/15/2017 SURGEON: Kaleb Ellison MD BUS ANALYST: Wilbert Rosales PA-C. ANESTHESIA: General endotracheal. PREOPERATIVE DIAGNOSIS: 1. 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 2. Intractable back pain and right greater than left lower extremity radiculopathy. 3. Failed conservative care. 4. High risk surgical candidate. 5. Failure/loosening. POSTOPERATIVE DIAGNOSIS: 1. 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 2. Intractable back pain and right greater than left lower extremity radiculopathy. 3. Failed conservative care. 4. High risk surgical candidate. 5. Failure/loosening. PROCEDURE PERFORMED: 1. L5-S1 anterior lumbar diskectomy and anterior lumbar interbody fusion with a 17 mm high by 28 x 3 6 mm footprint in 20 degrees lordosis, interbody cage and anterior plate and screw system. 2. Use of bone morphogenic protein and localized autograft for the fusion. 3. Use of intraoperative microscopy and fluoroscopy. FINDINGS: ESTIMATED BLOOD LOSS: 150 cc. DESCRIPTION OF PROCEDURE: After the exposure by Dr. Aime Loya, the L5-S1 interspace was identified and verified using intraoperative fluoroscopy. The prior interbody grafts were carefully removed al louise with the remaining portion of the disks. Distraction was created across the interspace and the d isks were carefully meticulously cleaned out from the old fusion material which did not take. After thoroughly cleaning out the disks and drilling into bleeding bone, a 17 mm high by 28 x 36 mm footpri nt PEEK interbody cage with 20 degrees of lordosis was placed under fluoroscopic image guidance. The se were secured with 5.5 x 25 mm screws in the anterior plating system. After re-verification of goo d position of the interbody spacer and screws, the wound was copiously irrigated with antibiotic irri gation. Meticulous hemostasis was achieved. Following re-verification of good positioning of the in terbody spacer, screws, and plating system, the wound was closed in a layered fashion using interrupt ed Vicryl sutures followed by Steri-Strips on the skin. COSURGEON: Aime Loya. COMPLICATIONS: None. INDICATIONS FOR PROCEDURE: The patient is a 77-year-old woman with intractable low back pain and rig ht lower extremity radiculopathy secondary to a nonunion at the L5-S1 level status post prior T10 to S1 fusion with instrumentation. She presents now for hardware removal and revision and placement of anterior-posterior reconstruction. DISPOSITION: The patient was then repositioned prone for the posterior portion of the operation. /[id number]/MODL
--- NOTE | 2017-12-15 14:00 | GOP ---
DATE OF OPERATION: 12/15/2017 SURGEON: Aime Loya MD COSURGEON: Salazar Ellison MD KIER BOILER: Wilbert Rosales PA-C ANESTHESIOLOGIST: Parminder Lemus MD PREOPERATIVE DIAGNOSIS: L5-S1 nonunion s/p prior decompression and fusion. POSTOPERATIVE DIAGNOSIS: L5-S1 nonunion s/p prior decompression and fusion. PROCEDURE PERFORMED: Anterior retroperitoneal L5-S1 spinal exposure with interbody fusion, hardware removal. FINDINGS: Extensive robel-vascular inflammatory changes. INDICATIONS: 77-year-old female with prior history of multiple posterior spinal interventions. She is undergoing a combined anterior-posterior hardware removal and decompression with instrumentation revision. Surgery has been requested to help with anterior retroperitoneal spinal access. DESCRIPTION OF PROCEDURE: General anesthesia was induced. The patient initially had been placed in prone position with her initial posterior screws being completely removed. The patient was replaced in supine position. Intraoperative fluoroscopy was utilized to identify the L5-S1 disk space. A transverse incision was created at approximately this level. The left anterior rectus sheath fascia was opened transversely. The rectus muscle was reflected medially. The retroperitoneal space was bluntly entered. After opening the transversalis fascia, the peritoneal envelope was reflected medially. The left ureter was identified and preserved with the envelope. The patient was extremely obese, making exposure challenging even with the use of extra-large retractors. The L5-S1 disk space was palpated. There was significant fibrosis of the entire left iliac artery and vein up to the level of the bifurcation. Significant time was spent releasing prior synechiae resultant from her posterior spinal instrumentation, which had created a marked amount of retroperitoneal fibrosis. Having carefully teased the vascular bundle off the spine, intraoperative fluoroscopy was used to confirm the L5-S1 disk space. The middle sacral vessels were divided using electrocautery. The prior posteriorly placed PEEK product was noted to be partially ulcerating through the wound. This was freed up using cautery and pulled out of the intervertebral space with the use of a Jerome clamp. Having released this, this allowed better access to the superior aspect of L5. At this point, care of the case was returned to Dr. Ellison for further corpectomy and instrumentation. Upon release of their portion of the case, the peritoneal envelope was allowed to be released back into its normal anatomic location, after having assured satisfactory hemostasis. The anterior rectus sheath was closed with a running absorbable suture. The wound was closed in layers with absorbable sutures, followed by Dermabond. The care of the case was turned to Dr. Ellison for repeat prone positioning and final revision. /[id number]/MODL MTDD
[2017-12-15] MEDS ORDERED: PROMETHAZINE HCL 25 MG/ML INJ IVP PRN (15:07)
[2017-12-15] MEDS ORDERED: ONDANSETRON 4 MG/2 ML VIAL IVP PRN ×2 (15:07→15:46)
[2017-12-15] MEDS ORDERED: DIAZEPAM 5 MG/ML 1 ML SYR IVP PRN (15:07)
[2017-12-15] MEDS ORDERED: NALOXONE HCL 0.4 MG/ML INJ IVP PRN ×2 (15:07→15:46)
[2017-12-15] MEDS ORDERED: fentaNYL 100 MCG/2 ML INJ IVP PRN (15:07)
[2017-12-15] MEDS ORDERED: HYDROmorphONE/DILAUDID 1 MG/ML INJ IVP PRN (15:07)
[2017-12-15] MEDS ORDERED: OXYCODONE/APAP 5/325 TAB PO PRN (15:07)
[2017-12-15] MEDS ORDERED: morphINE PCA 30 MG/30 ML PCA IV PRN (15:46)
[2017-12-15] MEDS ORDERED: BISACODYL 10 MG SUPP PR PRN (15:46)
[2017-12-15] MEDS ORDERED: ONDANSETRON DISINTEGRATING 4 MG TAB PO PRN (15:46)
[2017-12-15] MEDS ORDERED: diphenhydrAMINE 25 MG CAP PO PRN (15:46)
[2017-12-15] MEDS ORDERED: MAGNESIUM HYDROXIDE 30 ML UDCUP PO PRN (15:46)
[2017-12-15] MEDS ORDERED: LACTULOSE 20 GM/30 ML UDCUP PO PRN (15:46)
--- NOTE | 2017-12-15 15:53 | SOAPPROG ---
SOAP Progress Note Assessment/Plan: Assessment: 77 yo F sp L4-S1 hardware removal, L5/S1 ALIF, L3-Iliac fusion Plan: stable to ICU for observation PT/OT LSO brace when out of bed please call with neuro changes 12/15/17 15:51 Subjective: + back pain, burning in feet Objective: Vital Signs Temp Pulse Resp BP Pulse Ox 36.3 C 96 16 143/91 H 95 12/15/17 06:31 12/15/17 07:07 12/15/17 07:07 12/15/17 07:07 12/15/17 07:07 Laboratory Results 12/14/17 15:12 somnolent PERRL, no facial droop 5/5 except right DF/PF 4/5 + light touch ICD10 Worksheet Patient Problems: Problems Problem Status Onset Degenerative disc disease, lumbar Acute Fusion of spine of lumbar region Acute
[2017-12-15] MEDS ORDERED: NS 1,000 ML IV SCH (16:00)
--- NOTE | 2017-12-15 16:01 | GOP ---
DATE OF OPERATION: 12/15/2017 SURGEON: Kaleb Ellison MD NEUROSURGEON: Kaleb Ellison MD HEALTHCARE MANAGEMENT CONSULTANT: Wilbert Rosales PA-C. ANESTHESIA: General endotracheal. PREOPERATIVE DIAGNOSIS: L5-S1 pseudoarthrosis with hardware failure/loosening, intractable back pain , and right lower extremity radiculopathy. Failed conservative care. High risk surgical candidate g iven age, comorbidities, and required surgical intervention. POSTOPERATIVE DIAGNOSIS: L5-S1 pseudoarthrosis with hardware failure/loosening, intractable back alexis n, and right lower extremity radiculopathy. Failed conservative care. High risk surgical candidate given age, comorbidities, and required surgical intervention. PROCEDURE PERFORMED: Re-instrumentation from L1 to S1 and with the iliac screw/pelvic fixation. Red o of L1 through S1 posterolateral fusion with local autograft and morselized autograft. Redo right L 4-5 and L5-S1 posterior hemilaminectomy, foraminotomy, and diskectomy. Use of intraoperative microsc opy and fluoroscopy. Injection of intrathecal narcotic analgesics for postoperative pain control. FINDINGS: ESTIMATED BLOOD LOSS: 300 cc. INDICATIONS: The patient is a 77-year-old woman with intractable low back pain, right lower extremit y radicular symptoms, secondary to an L5-S1 pseudoarthrosis and recurrent disk herniation, with hardw are failure and loosening. The patient has failed conservative care and presents now for an extensiv e surgical reexploration and removal and replacement of hardware and anterior lumbar interbody fusion , as well as posterior. DESCRIPTION OF PROCEDURE: After informed consent was obtained and after the first posterior portion and anterior portion of the procedure was completed, the patient was repositioned prone on the [facility] n table. The thoracolumbosacral areas were prepped were re-prepped and draped in sterile fashion, an d the previously placed Ioban was removed. The retractors were inserted and the microscope was broug ht in and a redo right-sided L4-5 and L5-S1 posterior hemilaminectomy and foraminotomies were perform ed with complete unroofing of the facet joints and neural foramen. There was an extensive amount of scar tissue. Quite a bit of disk herniation was found up behind the right L5 vertebral body. It brien rated from the L5-S1 disk space. This was carefully decompressed, and following this, the wound was copiously irrigated with antibiotic irrigation. Meticulous hemostasis was achieved as best we could. Screws were then replaced at L4, L5, and at S1 and bilateral pelvic fixation was placed with 80 mm x 7.5 mm screws in the pelvis/S2 bilaterally. The O-arm neuronavigational system was utilized to rec onstruct 3D images and verified good position of all screws. Rods were then placed and secured under maximal lordosis from the L1-2 level where the jacques had previously cut. Jacques connectors were replaced and a new jacques was placed and secured. A redo posterolateral fusion was then performed from L1 down to S1 with local autograft and bone morphogenic protein. An axial device was placed at the L5-S1 lev el for added fixation given the nonunion that just occurred. Following this, the subcutaneous and intramuscular tissues were infiltrated with local anesthesia and the wound was closed in a layered fashion using interrupted Vicryl sutures, followed by Steri-Strips on the skin. COMPLICATIONS: None. DISPOSITION: The patient is currently in the process of being repositioned for extubation. /[id number]/MODL
--- NOTE | 2017-12-15 16:05 | POSTANESTH ---
Post Anesthetic Evaluation Cardiovascular Status: Normal, Stable Respiratory Status: Normal, Stable Level of Consciousness/Mental Status: Can Participate in Eval Pain Control: Adequate, Prn Tx Ordered Nausea/Vomiting Control: Adequate, Prn Tx Ordered Complications Possibly Related to Anesthesia: None Noted
[2017-12-15] MEDS ORDERED: ALBUMIN 5% 500 ML IV ONE (19:00)
[2017-12-15 19:16] LABS: PLATELET COUNT 230 10^3/uL (150-400)
[2017-12-15] MEDS: metFORMIN HCL 500 MG TAB PO SCH (19:51)
[2017-12-15] MEDS: POLYETHYLENE GLYCOL 3350 17 GM PKT PO SCH ×2 (19:51→20:36)
[2017-12-15] MEDS: GABAPENTIN 300 MG CAP PO SCH ×2 (19:52→20:35)
[2017-12-15] MEDS: TOBRAMYCIN 0.3% 5 ML OPHT.BTL EACHEYE SCH ×2 (19:52→20:36)
[2017-12-15] MEDS: FAMOTIDINE 20 MG TAB PO SCH (20:35)
[2017-12-15] MEDS: METHOCARBAMOL 750 MG TAB PO PRN (20:35)
[2017-12-15] MEDS: morphINE SR 15 MG TAB PO SCH (20:35)
[2017-12-15] MEDS: SENNOSIDES/DOCUSATE SODIUM TAB PO SCH (20:35)
[2017-12-15] MEDS: ceFAZolin 2 GM/DEXTROSE 100 ML IV SCH (22:09)
[2017-12-15] MEDS: METOPROLOL TARTRATE 50 MG TAB PO SCH (23:49)
[2017-12-16] MEDS: ceFAZolin 2 GM/DEXTROSE 100 ML IV SCH (05:12)
--- NOTE | 2017-12-16 06:01 | NEUSURGPN ---
Assessment/Plan: Assessment: 77 yo F sp L4-S1 hardware removal, L5/S1 ALIF, L3-Iliac fusion POD1 Plan: Transition to the floor PT/OT LSO brace when out of bed Optimize pain management DVT prophx: TEDs, SCDs, Lovenox POD2 Advance diet as tolerated please call with neuro changes Subjective: right leg still a bit weak, low back pain. Tolerable with medications Objective: NAD A&Ox3 MAEX4 5/5 and equal in BUE and BLE. Incision c/d/i Catheter Insertion Date: 12/15/17 - Physician Discussed Patient with : [facility] Physical Exam - Vitals, I&O, Labs I and O 12/14/17 12/15/17 12/16/17 05:59 05:59 05:59 Intake Total 7450 Output Total 2725 Balance 4725 Weight 87.09 kg Intake: Oral (ml) 1500 IV Intake (ml) 4700 IV Infused (ml) 1250 Ns 1,000 ml @ 100 mls/hr 1250 IV CONT ANDREA Rx#: [id number] Output: Urine (ml) 1400 Catheter 1400 Estimated Blood Loss (ml) 1000 BRITTANY Drain Output (ml) 325 Back Kasi [place] 325 Vital Signs Temp Pulse Resp BP Pulse Ox 36.6 C 107 H 16 105/57 L 100 12/15/17 23:47 12/16/17 04:00 12/16/17 04:00 12/16/17 04:00 12/16/17 04:00 Laboratory Results 12/15/17 18:50 ICD10 Worksheet Patient Problems: Problems Problem Status Onset Degenerative disc disease, lumbar Acute Fusion of spine of lumbar region Acute
[2017-12-16 06:17] LABS: PLATELET COUNT 208 10^3/uL (150-400)
--- NOTE | 2017-12-16 06:56 | CPEKG ---
Test Reason : OPEN Blood Pressure : / mmHG Vent. 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
[2017-12-16] MEDS: TOBRAMYCIN 0.3% 5 ML OPHT.BTL EACHEYE SCH ×4 (07:19→21:27)
--- NOTE | 2017-12-16 09:13 | SOAPPROG ---
SOAP Progress Note Assessment/Plan: Assessment:no overnight events. pain well controlled. no nausea. afebrile. comfortable. abd soft, min dist. incis clean. s/p anterior spinal exposure. doing well. no specific postop issues noted. diet as able. activity as per NS. Plan: 12/16/17 09:12 Objective: Vital Signs Temp Pulse Resp BP Pulse Ox 36.5 C 114 H 17 108/53 L 98 12/16/17 07:54 12/16/17 07:54 12/16/17 07:54 12/16/17 07:54 12/16/17 07:54 Laboratory Results 12/16/17 06:00 12/16/17 06:00 12/15/17 12/16/17 12/17/17 05:59 05:59 05:59 Intake Total 9050 Output Total 1359 Balance 4794 ICD10 Worksheet Patient Problems: Problems Problem Status Onset Degenerative disc disease, lumbar Acute Fusion of spine of lumbar region Acute
--- NOTE | 2017-12-16 09:19 | ASMTCMCOM ---
CM Note CM Note Notes: Chart reviewed. 77 year old female POD 1 s/p spinal hardware removal and fusion. Medically cleared to transfer to ortho neuro, PT and OT evaluations pending. Needs TBD at this time. Plan: TBD Date Signed: 12/16/2017 09:18 AM Electronically Signed By:Jackie Montgomery RN
--- NOTE | 2017-12-16 09:21 | PDMN ---
Medical Necessity Medical necessity: [facility] IP only surgery; CPT 44174, 66208, 87672, S530 removal of posterior spinal instrumentation
[2017-12-16] MEDS: DIAZEPAM 5 MG TAB PO PRN ×2 (09:27→18:17)
[2017-12-16] MEDS: GABAPENTIN 300 MG CAP PO SCH ×3 (09:27→22:00)
[2017-12-16] MEDS: SENNOSIDES/DOCUSATE SODIUM TAB PO SCH ×2 (09:27→21:26)
[2017-12-16] MEDS: METHOCARBAMOL 750 MG TAB PO PRN (09:27)
[2017-12-16] MEDS: metFORMIN HCL 500 MG TAB PO SCH ×2 (09:28→17:36)
[2017-12-16] MEDS: FAMOTIDINE 20 MG TAB PO SCH ×2 (09:28→21:26)
[2017-12-16] MEDS: morphINE SR 15 MG TAB PO SCH ×2 (09:28→21:26)
[2017-12-16] MEDS: METOPROLOL TARTRATE 50 MG TAB PO SCH ×2 (09:28→21:59)
[2017-12-16] MEDS: POLYETHYLENE GLYCOL 3350 17 GM PKT PO SCH ×3 (09:29→22:00)
[2017-12-16] MEDS: ENOXAPARIN 40 MG/0.4 ML SYR SC SCH (09:29)
[2017-12-16] MEDS: oxyCODONE IR 5 MG TAB PO PRN ×2 (13:20→17:36)
[2017-12-16] MEDS: hydrOXYzine HCL 25 MG TAB PO PRN (16:56)
[2017-12-16] MEDS ORDERED: NS BOLUS 500 ML (Wide open) IV ONE ×2 (17:00→18:30)
[2017-12-16] MEDS ORDERED: NS W/ 20 KCl/L 1,000 ML IV SCH (21:00)
[2017-12-16] MEDS ORDERED: NS 500 ML IV ONE (21:00)
[2017-12-17] MEDS: METHOCARBAMOL 750 MG TAB PO PRN ×2 (01:21→10:41)
[2017-12-17] MEDS: hydrOXYzine HCL 25 MG TAB PO PRN ×2 (01:21→15:40)
[2017-12-17] MEDS: oxyCODONE IR 5 MG TAB PO PRN ×4 (01:21→21:31)
[2017-12-17] MEDS: TOBRAMYCIN 0.3% 5 ML OPHT.BTL EACHEYE SCH ×4 (05:58→21:45)
[2017-12-17] MEDS ORDERED: BACITRACIN OINTMENT 1 PACKET TP PRN ×2 (07:29→07:50)
[2017-12-17] MEDS: SENNOSIDES/DOCUSATE SODIUM TAB PO SCH ×2 (08:34→21:44)
[2017-12-17] MEDS: ENOXAPARIN 40 MG/0.4 ML SYR SC SCH (08:34)
[2017-12-17] MEDS: METOPROLOL TARTRATE 50 MG TAB PO SCH (08:34)
[2017-12-17] MEDS: metFORMIN HCL 500 MG TAB PO SCH ×2 (08:34→18:29)
[2017-12-17] MEDS: FAMOTIDINE 20 MG TAB PO SCH ×2 (08:35→21:31)
[2017-12-17] MEDS: GABAPENTIN 300 MG CAP PO SCH ×3 (08:35→21:31)
[2017-12-17] MEDS: morphINE SR 15 MG TAB PO SCH (08:35)
[2017-12-17] MEDS: POLYETHYLENE GLYCOL 3350 17 GM PKT PO SCH ×3 (08:39→21:44)
--- NOTE | 2017-12-17 09:03 | SOAPPROG ---
SOAP Progress Note Assessment/Plan: Assessment:c/o severe back itch and discomfort secondary to ViDrape rash. no other new complaints. Afebrile. BP 130. comfortable. abd soft. incis clean. back incision clean - diffuse rectangular contact dermatitis (ViDrape placement). feet warm. pulses intact. slow progress. diet as able. calamine to rash. PT. no overnight events. pain well controlled. no nausea. afebrile. comfortable. abd soft, min dist. incis clean. s/p anterior spinal exposure. doing well. no specific postop issues noted. diet as able. activity as per NS. Plan: 12/16/17 09:12 12/17/17 09:01 Objective: Vital Signs Temp Pulse Resp BP Pulse Ox 37.5 C 133 H 20 133/69 H 85 L 12/17/17 07:43 12/17/17 07:43 12/17/17 07:43 12/17/17 07:43 12/17/17 07:43 Laboratory Results 12/17/17 04:51 12/17/17 04:51 12/16/17 12/17/17 12/18/17 05:59 05:59 05:59 Intake Total 2158 3570 Output Total 2291 870 Balance 4700 9460 ICD10 Worksheet Patient Problems: Problems Problem Status Onset Degenerative disc disease, lumbar Acute Fusion of spine of lumbar region Acute
[2017-12-17] MEDS: SODIUM CL NASAL 45 ML BTL EACHNARE PRN ×2 (09:05→17:07)
--- NOTE | 2017-12-17 09:08 | NEUSURGPN ---
Assessment/Plan: Assessment: 77 yo F sp L4-S1 hardware removal, L5/S1 ALIF, L3-Iliac fusion POD2 Plan: Continue BRITTANY drain this morning. PT/OT LSO brace when out of bed Optimize pain management DVT prophx: TEDs, SCDs, Lovenox POD2 Advance diet as tolerated please call with neuro changes Subjective: right leg still a bit weak, low back pain. Tolerable with medications Objective: NAD A&Ox3 MAEX4 5/5 and equal in BUE and BLE. Incision c/d/i Catheter Insertion Date: 12/15/17 Neurosurgery Physical Exam - Vitals, I&O, Labs I and O 12/16/17 12/17/17 12/18/17 05:59 05:59 05:59 Intake Total 7450 2680 Output Total 2725 870 Balance 4725 1810 Weight 87.09 kg Intake: Oral (ml) 1500 960 IV Intake (ml) 4700 IV Infused (ml) 1250 1720 NS W/ 20 KCl/L 1,000 ml @ 675 100 mls/hr IV CONT ANDREA Rx#:[id number] Ns 1,000 ml @ 100 mls/hr 1250 545 IV CONT ANDREA Rx#: [id number] Ns 500 ml @ Wide Open IV 500 ONCE ONE Rx#:[id number] Output: Urine (ml) 1400 625 Catheter 1400 625 Estimated Blood Loss (ml) 1000 BRITTANY Drain Output (ml) 325 245 Back Kasi Lawton 325 245 Other: Intake Quantity Yes Sufficient Number of Voids Catheter 1 Vital Signs Temp Pulse Resp BP Pulse Ox 37.5 C 133 H 20 133/69 H 85 L 12/17/17 07:43 12/17/17 07:43 12/17/17 07:43 12/17/17 07:43 12/17/17 07:43 Laboratory Results 12/17/17 04:51 12/17/17 04:51 ICD10 Worksheet Patient Problems: Problems Problem Status Onset Degenerative disc disease, lumbar Acute Fusion of spine of lumbar region Acute
[2017-12-17] MEDS: CALAMINE 180 ML BOTTLE TP PRN ×2 (09:39→18:56)
[2017-12-17] MEDS ORDERED: ALBUTEROL 3 ML DEYVIAL IH PRN (13:09)
[2017-12-17] MEDS ORDERED: ACETAMINOPHEN 325 MG TAB PO PRN (13:09)
--- NOTE | 2017-12-17 13:32 | ASMTCMCOM ---
CM Note CM Note Notes: PT/OT rec inpatient rehab. Spoke with pt Aime and dghtr Audra, they plan on d/c to [facility] SNF in [place]. Referral sent in [employer], this CM was unable reach anyone in admissions and was told the admissions staff do not work weekends, left a voicemail for d/c c4 planner Leanna. Unknown if this SNF uses [employer]. Audra and Aime plan to transport pt to SNF in their private vehicle. CM to follow up with [facility] SNF Tuesday. D/c plan: SNF Date Signed: 12/17/2017 01:31 PM Electronically Signed By:MADDIE Yi
[2017-12-17 16:40] LABS: PLATELET COUNT 208 10^3/uL (150-400)
[2017-12-17] MEDS: CETIRIZINE 10 MG TAB PO SCH (18:29)
--- NOTE | 2017-12-17 18:59 | GCON ---
MEDICINE CONSULTATION DATE OF CONSULTATION: 12/17/2017 REASON FOR CONSULTATION: Fever and confusion. Service requesting consultation , Kimberlee Jaramillo, Neurosurgery Service. HISTORY: For details, please see history and physical by Wilbert Rosales dated December 15, 2017. In brief, the patient is a 77-year-old female with history of rheumatoid arthritis, on chronic immunosuppressive therapy, as well as degenerative disk disease, who has previously undergone T10 through L5 fusion in 2014 and was admitted to the hospital for elective anterior-posterior lumbar fusion. She is postop day 2 from the surgery, which was performed by Dr. Loya and Dr. Ellison. Her postop course has been complicated by waxing and waning mental status. She apparently had increased agitation last night and was treated with Valium. Today around noon she had a temperature of 38.8. She denies any focal infectious symptoms such as cough, chest pain, shortness of breath, dysuria, frequency, urgency, or abdominal pain. Per the RN, she has had increased stooling throughout the day. Currently, urinalysis and a C diff are pending. A chest x-ray is also ordered. Medicine consultation is requested to further evaluate source of her fever and confusion. PAST MEDICAL/SURGICAL HISTORY: 1. Rheumatoid arthritis. 2. Chronic immunosuppression, on Rituxan. 3. Degenerative disk disease. 4. L3 to S1 fusion and L5-S1 TLIF on September 01, 2017. 5. T10 to L5 fusion in 2014. It is chief SS it. 6. Chronic pain due to above. 7. Diabetes mellitus, [id number]. 8. Hypertension. 9. Chronic heart failure. MEDICATIONS: Please see [employer] completed outpatient medication list. ALLERGIES: Levofloxacin, Benadryl, sulfamethoxazole, trimethoprim, and adhesive tape. FAMILY HISTORY: Reviewed and noncontributory. SOCIAL HISTORY: The patient lives independently. She is a nonsmoker. REVIEW OF SYSTEMS: A 10-point review of systems was performed and is negative except as per HPI. OBJECTIVE: VITAL SIGNS: Temperature is 37.1, blood pressure this afternoon 92/ 43, repeat blood pressure 117/47, heart rate 101 down from the 120s last night, respiratory rate 16. She is 100% oxygen on 3 L by nasal cannula. GENERAL: The patient is awake, alert, and oriented to person and place. HEENT: Head is atraumatic, normocephalic. Pupils equal, round, react to light. Extraocular movements are intact. Oropharynx is clear. Mucous membranes are moist. NECK: Supple. There is no JVD. HEART: Regular rate and rhythm. LUNGS: Clear to auscultation bilaterally. ABDOMEN: Soft, nondistended, obese. Her horizontal lower abdominal incision is clean, dry, and intact without purulence or surrounding erythema. There is appropriate tenderness to palpation without rebound, rigidity, or guarding. There are no peritoneal signs. Hypoactive bowel sounds are present. EXTREMITIES: She has 1+ bilateral lower extremity edema. NEUROLOGIC: She moves all 4 extremities and no focal neurologic deficits. LABORATORY DATA: CBC reveals white blood cell count 16.7; this is down from 25 two days ago. Hemoglobin 8.6, down from 11. Platelets are normal. Basic metabolic panel reveals a sodium of 133, electrolytes, otherwise normal. Creatinine at 0.6, blood glucose 123. Urinalysis is pending. C diff study is pending. Chest x-ray is also pending. ASSESSMENT AND PLAN: The patient is a 77-year-old female with a history of degenerative disk disease and multiple back surgeries, who is postoperative day 2 from an anterior-posterior fusion and developed a fever today with waxing and waning mental status. 1. Fever: Tmax was 38.8 at 12:30 p.m. She has been afebrile through the rest of the afternoon. She has no focal infectious symptoms. She is currently normotensive. Her white blood cell count has been trending down (25K-->16K). CXR, UA and C diff pending. Will initiate treatment if this workup reveals an infectious source. I have also sent blood cultures and a lactate. At this point, I see no evidence of a postoperative wound infection. 2. Hypotension: She is currently normotensive, but I do note some blood pressures in the 80s to 90s during her postoperative phase, which seemed responsive to fluid boluses. Will hold her metoprolol for now to avoid worsening her hypotension. As above, blood cultures and lactate are pending. 3. Tachycardia: An EKG from the day of admission showed sinus tachycardia with a heart rate of 107. Her heart rate is a bit improved at this point, down to 70's-80's from the 120s and 130s this morning. This suggests she has responded to IV fluids. She denies chest pain or shortness of breath, and I do not see any significant hypoxemia, though would consider CTA to rule out pulmonary embolus if she has worsening tachycardia. Investigation for infectious causes as above. 4. Acute encephalopathy: This is clearly a change from her baseline. Review of her medications reveals she has received in the past 24 hours: IV morphine, MS Contin, oxycodone, gabapentin, Robaxin, hydroxyzine and Valium. I suspect polypharmacy may be contributing to altered mentation. Her mentation seems improved during my evaluation. I agree with stopping her MS Contin. In addition , will stop her IV morphine and also hold benzodiazepines. Will schedule her Tylenol at 1000 mg q.8 hours and continue p.r.n. oxycodone, favoring the lower dose if possible. We will also change her Vistaril to Zyrtec, which may be less likely to cause confusion. If she has agitation, I would favor a low dose of Haldol over benzodiazepines, which can contribute to confusion. 5. Rheumatoid arthritis: Her Rituxan is currently held. Her immunosuppressed state certainly increases her risk for infectious complications. Again, workup as above. 6. Hyponatremia: This is mild, though I do note her sodium has dropped 5 points in the past 24 hours. However, it seems unlikely a sodium of 133 is contributing to mental status changes. Will continue her normal saline and add a free water restriction. Recheck this in the morning. 7. Deep venous thrombosis prophylaxis: Lovenox. 8. Code status: Patient is full code. 9. Disposition: Continue inpatient status. Medicine will continue to follow daily during her hospitalization. Thank you very much for this consultation. Please call with questions or concerns. /[id number]/MODL MTDD
[2017-12-17] MEDS: ACETAMINOPHEN 500 MG TAB PO SCH (21:30)
[2017-12-18] MEDS: oxyCODONE IR 5 MG TAB PO PRN ×3 (03:14→14:00)
--- NOTE | 2017-12-18 07:10 | SOAPPROG ---
SOAP Progress Note Assessment/Plan: Assessment:fever and confusion overnight with large diarrheal episode. currently resting quietly. states back better with calamine. afebrile/TM 38.8, BP 120's, P 110's. skin color better. heart reg, tachy. lungs diminished bilat bases. abd nontender. incis clean. back incision clean, BRITTANY serosang. contact dermatitis less intense. s/p spine revision. suspect sundowning/ atelectasis. medicine note appreciated. cont supportive care for now. await cultures. PT/OT. c/o severe back itch and discomfort secondary to ViDrape rash. no other new complaints. Afebrile. BP 130. comfortable. abd soft. incis clean. back incision clean - diffuse rectangular contact dermatitis (ViDrape placement). feet warm. pulses intact. slow progress. diet as able. calamine to rash. PT. no overnight events. pain well controlled. no nausea. afebrile. comfortable. abd soft, min dist. incis clean. s/p anterior spinal exposure. doing well. no specific postop issues noted. diet as able. activity as per NS. Plan: 12/16/17 09:12 12/17/17 09:01 12/18/17 06:53 Objective: Vital Signs Temp Pulse Resp BP Pulse Ox 36.9 C 118 H 19 102/61 94 12/18/17 03:29 12/18/17 03:29 12/18/17 03:29 12/18/17 03:29 12/18/17 03:29 Laboratory Results 12/17/17 15:30 12/17/17 15:30 12/17/17 12/18/17 12/19/17 05:59 05:59 05:59 Intake Total 2680 1370 Output Total 870 1290 Balance 1810 80 ICD10 Worksheet Patient Problems: Problems Problem Status Onset Degenerative disc disease, lumbar Acute Fusion of spine of lumbar region Acute
[2017-12-18] MEDS: TOBRAMYCIN 0.3% 5 ML OPHT.BTL EACHEYE SCH ×4 (07:53→22:28)
[2017-12-18] MEDS: ACETAMINOPHEN 500 MG TAB PO SCH ×3 (07:55→22:21)
[2017-12-18] MEDS: metFORMIN HCL 500 MG TAB PO SCH ×2 (08:02→17:21)
[2017-12-18] MEDS: CETIRIZINE 10 MG TAB PO SCH (08:02)
[2017-12-18] MEDS: FAMOTIDINE 20 MG TAB PO SCH ×2 (08:03→20:37)
[2017-12-18] MEDS: GABAPENTIN 300 MG CAP PO SCH ×3 (08:03→22:21)
[2017-12-18] MEDS: ENOXAPARIN 40 MG/0.4 ML SYR SC SCH (08:03)
--- NOTE | 2017-12-18 08:34 | HOSPPROG ---
Hospitalist Progress Note Assessment/Plan: Steffany Craig is a 77 y/o female w DDD who underwent an anterior-posterior fusion. Her mental status has been waxing and waning. She also developed a fever. Today is my first encounter w the patient, chart reviewed. *fever -lactate was elevated, but improved -ua shows no infectious etiology, chest xr ay shows nothing acute, c diff negative, blood cx pending -back wound doesn't appear infected *tachycardia -patient's metoprolol was held due to low bp- is on 50 mg bid -will do a low dose today and monitor, her tachycardia could be multifactorial ( pain, not being on her beta akila, fluid overload, could consider CTA) *hypotension -resolved *DDD s/p L4-S1 hardware removal, L5/S1 ALIF, L3-Iliac fusion POD3 -was able to stand today *acute encephalopathy -multifactorial-narcotics, recent surgery -MS Contin dc -on scheduled Tylenol -she is alert and conversant today *hyponatremia -mild, will follow *fluid overloaded, hx of CHF -patient has significant generalized edema, is on lasix at home -give low IV dose of Lasix *rash/ localized reaction to possible iodine -calamine lotion, she is allergic to benadryl, cont pepcid *RA -Rituxan is on hold *dvt prophylaxis: LMWH *plan: add back metoprolol but lower dose, iv lasix, repeat labs in a.m. Subjective: Steffany has no complaints. Objective: Vital Signs Temp Pulse Resp BP Pulse Ox 37.0 C 126 H 16 114/60 98 12/18/17 07:25 12/18/17 07:25 12/18/17 07:25 12/18/17 07:25 12/18/17 07:25 Laboratory Results 12/17/17 15:30 12/17/17 15:30 12/17/17 12/18/17 12/19/17 05:59 05:59 05:59 Intake Total 2680 1370 Output Total 870 1290 30 Balance 1810 80 -30 - Physical Exam Constitutional: appears nourished, chronically ill appearing, obese Eyes: PERRL Ears, Nose, Mouth, Throat: hearing normal Cardiovascular: regular rate and rhythym, tachycardia Respiratory: no respiratory distress, reduced air movement Skin: rash (redness on the back, large square covering from below shoulders and down the back) Musculoskeletal: generalized weakness Neurologic: other (alert and oriented) Psychiatric: interacting appropriately ICD10 Worksheet Patient Problems: Problems Problem Status Onset Degenerative disc disease, lumbar Acute Fusion of spine of lumbar region Acute
[2017-12-18] MEDS: CALAMINE 180 ML BOTTLE TP PRN ×3 (08:59→20:35)
[2017-12-18] MEDS ORDERED: METOPROLOL TARTRATE 25 MG TAB PO SCH (09:00)
[2017-12-18 09:39] LABS: PLATELET COUNT 177 10^3/uL (150-400)
--- NOTE | 2017-12-18 09:56 | NEUSURGPN ---
Assessment/Plan: Assessment: 77 yo F sp L4-S1 hardware removal, L5/S1 ALIF, L3-Iliac fusion POD3 Confusion post op. Plan: Continue BRITTANY drain. PT/OT LSO brace when out of bed Optmize pain management while balancing with mental status. MsContin d/c Fever work up pending, WBC 16, UA negative, C-diff negative. Bx Cx pending, Appreciate medicine consultatio H:H declined yesterday, will monitor for now skin irritation/rash: K pad or cool therapy. Zyrtec for itching DVT prophx: TEDs, SCDs, Lovenox POD2 please call with neuro changes Discussed with Dr. Cannon Subjective: right leg still a bit weak, low back pain. Tolerable with medications Objective: NAD Oriented to person, but not fully to place or time MAEX4, stable right foot weakness. Incision c/d/i. Blistery red rash on back and stomach-> patient may be having a reaction to surgical draping Catheter Insertion Date: 12/15/17 - Physician Discussed Patient with DrAlisia: [facility] Physical Exam - Vitals, I&O, Labs I and O 12/17/17 12/18/17 12/19/17 05:59 05:59 05:59 Intake Total 2680 1370 Output Total 870 1290 30 Balance 1810 80 -30 Intake: Oral (ml) 960 1370 IV Infused (ml) 1720 NS W/ 20 KCl/L 1,000 ml @ 675 100 mls/hr IV CONT ANDREA Rx#:[id number] Ns 1,000 ml @ 100 mls/hr 545 IV CONT ANDREA Rx#: [id number] Ns 500 ml @ Wide Open IV 500 ONCE ONE Rx#:[id number] Output: Urine (ml) 625 1140 Bedpan 200 Bedside Commode 300 Catheter 625 640 BRITTANY Drain Output (ml) 245 150 30 Back Kasi Lawton 245 150 30 Other: Intake Quantity Yes Yes Sufficient Number of Voids Bedpan 1 Bedside Commode 1 1 Catheter 1 1 Incontinence 1 Number of Stools Bedside Commode 1 Catheter 1 Incontinence 1 1 Vital Signs Temp Pulse Resp BP Pulse Ox 37.0 C 126 H 16 114/60 98 12/18/17 07:25 12/18/17 07:25 12/18/17 07:25 12/18/17 07:25 12/18/17 07:25 Laboratory Results 12/18/17 08:43 12/17/17 15:30 ICD10 Worksheet Patient Problems: Problems Problem Status Onset Degenerative disc disease, lumbar Acute Fusion of spine of lumbar region Acute
[2017-12-18] MEDS: SENNOSIDES/DOCUSATE SODIUM TAB PO SCH ×2 (09:57→22:28)
[2017-12-18] MEDS: POLYETHYLENE GLYCOL 3350 17 GM PKT PO SCH ×3 (09:57→22:28)
[2017-12-18] MEDS ORDERED: FUROSEMIDE 20 MG/2 ML VIAL IVP ONE (10:00)
[2017-12-18] MEDS: METHOCARBAMOL 750 MG TAB PO PRN ×2 (10:01→20:37)
[2017-12-18] MEDS ORDERED: METOPROLOL TARTRATE 25 MG TAB PO ONE (13:10)
[2017-12-18] MEDS: METOPROLOL TARTRATE 25 MG TAB PO SCH (20:37)
[2017-12-19 05:42] LABS: PLATELET COUNT 262 10^3/uL (150-400)
[2017-12-19] MEDS: ACETAMINOPHEN 500 MG TAB PO SCH ×3 (06:33→23:34)
[2017-12-19] MEDS: TOBRAMYCIN 0.3% 5 ML OPHT.BTL EACHEYE SCH ×4 (06:46→20:38)
--- NOTE | 2017-12-19 08:09 | SOAPPROG ---
SOAP Progress Note Assessment/Plan: Assessment:better night. still with confusion during nighttime. currently without pain. foot tingling better than preop. family looking into med- transport back to [place]. afebrile. P 100's. alert, comfortable, good skin color. abd soft. incis clean - approp ecchymosis/hyperemia, no erythema. s/p AP spinal revision. sundowning. tachy - asympt. clinically significantly improved overnight. ambulate/PT/OT. supportive family members at bedside. fever and confusion overnight with large diarrheal episode. currently resting quietly. states back better with calamine. afebrile/TM 38.8, BP 120's, P 110' s. skin color better. heart reg, tachy. lungs diminished bilat bases. abd nontender. incis clean. back incision clean, BRITTANY serosang. contact dermatitis less intense. s/p spine revision. suspect sundowning/atelectasis. medicine note appreciated. cont supportive care for now. await cultures. PT/OT. c/o severe back itch and discomfort secondary to ViDrape rash. no other new complaints. Afebrile. BP 130. comfortable. abd soft. incis clean. back incision clean - diffuse rectangular contact dermatitis (ViDrape placement). feet warm. pulses intact. slow progress. diet as able. calamine to rash. PT. no overnight events. pain well controlled. no nausea. afebrile. comfortable. abd soft, min dist. incis clean. s/p anterior spinal exposure. doing well. no specific postop issues noted. diet as able. activity as per NS. Plan: 12/16/17 09:12 12/17/17 09:01 12/18/17 06:53 12/19/17 08:06 Objective: Vital Signs Temp Pulse Resp BP Pulse Ox 36.8 C 110 H 18 123/54 H 91 L 12/19/17 04:00 12/19/17 04:00 12/19/17 04:00 12/19/17 04:00 12/19/17 04:00 Laboratory Results 12/19/17 05:15 12/19/17 05:15 12/18/17 12/19/17 12/20/17 05:59 05:59 05:59 Intake Total 1370 300 Output Total 1290 1311 Balance 80 -1011 ICD10 Worksheet Patient Problems: Problems Problem Status Onset Degenerative disc disease, lumbar Acute Fusion of spine of lumbar region Acute
--- NOTE | 2017-12-19 08:48 | NEUSURGPN ---
Assessment/Plan: Assessment: 77 yo F sp L4-S1 hardware removal, L5/S1 ALIF, L3-Iliac fusion POD4 Confusion post op, worse at night. Family notes she waas having some confusion at night before surgery. Nursing had to use mitts to stop patient from scratching incision/removing drain bulb and steri-strips. Plan: d/c BRITTANY drain, drain PT/OT LSO brace when out of bed Optimize pain management while balancing with mental status. MsContin d/c Fever work up pending, UA negative, C-diff negative. Bx Cx NGTD, Appreciate medicine consultation H:H continue to monitor skin irritation/rash: K pad or cool therapy. Zyrtec for itching DVT prophx: TEDs, SCDs, Lovenox please call with neuro changes Work towards transfer to SNF/dispo planning once medical stable. Discussed with Dr. Cannon Subjective: Denies any new pain, numbness, or tingling Objective: NAD Oriented to person, but not to place or time MAEX4, stable right foot weakness. Incision c/d/i. Blistery red rash on back and stomach-> improved since yesterday Catheter Insertion Date: 12/15/17 - Physician Discussed Patient with : [facility] Physical Exam - Vitals, I&O, Labs I and O 12/18/17 12/19/17 12/20/17 05:59 05:59 05:59 Intake Total 1370 300 Output Total 1290 1311 Balance 80 -1011 Intake: Oral (ml) 1370 300 Output: Urine (ml) 1140 1151 Bedpan 200 Bedside Commode 300 1151 Catheter 640 BRITTANY Drain Output (ml) 150 160 Back Kasi Lawton 150 160 Other: Intake Quantity Yes Yes Sufficient Number of Voids Bedpan 1 Bedside Commode 1 1 Catheter 1 Incontinence 1 2 Number of Stools Bedside Commode 1 Catheter 1 Incontinence 1 1 Vital Signs Temp Pulse Resp BP Pulse Ox 36.8 C 120 H 15 145/84 H 99 12/19/17 04:00 12/19/17 08:00 12/19/17 08:00 12/19/17 08:00 12/19/17 08:00 Laboratory Results 12/19/17 05:15 12/19/17 05:15 ICD10 Worksheet Patient Problems: Problems Problem Status Onset Degenerative disc disease, lumbar Acute Fusion of spine of lumbar region Acute
[2017-12-19] MEDS: ENOXAPARIN 40 MG/0.4 ML SYR SC SCH (08:49)
[2017-12-19] MEDS: METOPROLOL TARTRATE 25 MG TAB PO SCH ×2 (08:50→20:43)
[2017-12-19] MEDS: FAMOTIDINE 20 MG TAB PO SCH ×2 (08:50→20:31)
[2017-12-19] MEDS: metFORMIN HCL 500 MG TAB PO SCH ×2 (08:50→18:02)
[2017-12-19] MEDS: METHOCARBAMOL 750 MG TAB PO PRN ×2 (08:50→16:45)
[2017-12-19] MEDS: FUROSEMIDE 20 MG TAB PO SCH (08:50)
[2017-12-19] MEDS: GABAPENTIN 300 MG CAP PO SCH ×2 (08:50→16:49)
[2017-12-19] MEDS: CETIRIZINE 10 MG TAB PO SCH (08:51)
[2017-12-19] MEDS: SENNOSIDES/DOCUSATE SODIUM TAB PO SCH (08:58)
[2017-12-19] MEDS: POLYETHYLENE GLYCOL 3350 17 GM PKT PO SCH ×2 (08:58→16:45)
[2017-12-19] MEDS ORDERED: FUROSEMIDE 20 MG/2 ML VIAL IVP ONE (09:00)
[2017-12-19] MEDS ORDERED: ACETAMINOPHEN 325 MG TAB PO ONE (09:00)
--- NOTE | 2017-12-19 09:14 | HOSPPROG ---
Hospitalist Progress Note Assessment/Plan: Steffany Craig is a 77 y/o female w DDD who underwent an anterior-posterior fusion. Her mental status has been waxing and waning. She also developed a fever. *fever, resolved -lactate was elevated, but improved -ua shows no infectious etiology, chest x ray shows nothing acute, c diff negative, blood cx no growth -back wound doesn't appear infected *tachycardia -with improved bp, will resume full dose of Metoprolol -her hct has dropped from 35-25-this may be causing the tachycardia -if cont to be tachycardic after transfusion and w resuming her home medications ; will get a CTA -personally reviewed her 12 lead ekg, nothing acute, shows tachycardia *hypotension -resolved as of this morning, but drops when getting oob *abla -transfuse a unit, patient is exhausted and is very pale -has a cardiac hx -she has had episodes of hypotension *DDD s/p L4-S1 hardware removal, L5/S1 ALIF, L3-Iliac fusion POD3 -slowly mobilizing *acute encephalopathy -multifactorial-narcotics, recent surgery -MS Contin dc -on scheduled Tylenol -she is alert and conversant this morning, had some sundowning last night, spoke w the patient's daughter and she sundowns at home (this may be close to her baseline) *hyponatremia -resolved, improved w lasix *fluid overloaded, hx of CHF -patient has significant generalized edema, is on Lasix at home (resumed this) -improved *rash/ localized reaction to possible iodine -much improved *RA -Rituxan is on hold *dvt prophylaxis: LMWH *plan: transfuse a unit of PRBC's, increase Metoprolol to her home dose, CM to see, is concerned he needs to get back to [place] this ; explained to him I am not sure when she will be ready for dc at this time Subjective: Steffany said she is feeling better today, is unaware she gets confused in the early evening. Objective: Vital Signs Temp Pulse Resp BP Pulse Ox 36.8 C 120 H 15 145/84 H 99 12/19/17 04:00 12/19/17 08:00 12/19/17 08:00 12/19/17 08:00 12/19/17 08:00 Laboratory Results 12/19/17 05:15 12/19/17 05:15 12/18/17 12/19/17 12/20/17 05:59 05:59 05:59 Intake Total 1370 300 Output Total 1290 1311 305 Balance 80 -1011 -305 - Physical Exam Constitutional: appears nourished, chronically ill appearing, obese, uncomfortable Eyes: PERRL Ears, Nose, Mouth, Throat: hearing normal Cardiovascular: regular rate and rhythym, tachycardia Respiratory: no respiratory distress, reduced air movement Gastrointestinal: other (large and round) Skin: warm, other (rash evaluated while in the chair, upper back area much improved, unable to see rest of her back - has a brace in place) Musculoskeletal: generalized weakness Neurologic: AAOx3 Psychiatric: interacting appropriately, poor memory ICD10 Worksheet Patient Problems: Problems Problem Status Onset Degenerative disc disease, lumbar Acute Fusion of spine of lumbar region Acute
--- NOTE | 2017-12-19 09:49 | WOCRNPDOC ---
WOCRN Advanced Assessment Note - Skin Integrity Problem, Advanced Assess Back Dermatitis Dressing Type: Open to Air Skin Integrity Problem Comment: Generalized erythema from scapula to sacrum. There are small partial thickness openings near the sacrum that are either from tape removal or from the contact dermatitis. These are open to air and dried. All 1x1 or smaller. Calazime present. Advised changing to Durable Barrier cream or Dimethicone over skin as calazime is drying the skin somewhat. Wound care will sign off. Pamela YODER in room for asessment.
--- NOTE | 2017-12-19 11:42 | ASMTCMCOM ---
CM Note CM Note Notes: Spoke with patient's daughter and . They are unable to afford transport back to [place] by ambulance ($5000.00 out of pocket expense) and plan to transport the patient themselves in the family van. They have done this several times as patient has been here for several surgeries. We have not received a response from the [facility] SNF in [place], [place] yet. Patient required blood transfusion today and will not be ready for d/c for another day or so.CM will follow. Date Signed: 12/19/2017 11:42 AM Electronically Signed By:Merlene Bruno LCSW
[2017-12-19] MEDS ORDERED: ACETAMINOPHEN 325 MG TAB ONE (11:54)
[2017-12-19] MEDS ORDERED: FUROSEMIDE 20 MG/2 ML VIAL ONE (15:01)
[2017-12-19] MEDS ORDERED: PREGABALIN 75 MG CAP ONE (17:00)
[2017-12-19] MEDS ORDERED: METOPROLOL TARTRATE 5 MG/5 ML INJ IVP ONE (17:35)
[2017-12-19] MEDS: PREGABALIN 75 MG CAP PO SCH (20:31)
[2017-12-19] MEDS: SODIUM CL NASAL 45 ML BTL EACHNARE PRN (20:38)
[2017-12-20] MEDS: HALOPERIDOL LACT 5 MG/ML INJ IVP PRN ×2 (00:04→23:31)
[2017-12-20] MEDS: METHOCARBAMOL 750 MG TAB PO PRN ×3 (04:07→18:02)
[2017-12-20] MEDS: TOBRAMYCIN 0.3% 5 ML OPHT.BTL EACHEYE SCH ×4 (05:19→21:10)
[2017-12-20] MEDS: SENNOSIDES/DOCUSATE SODIUM TAB PO SCH ×3 (05:23→21:03)
[2017-12-20] MEDS: POLYETHYLENE GLYCOL 3350 17 GM PKT PO SCH ×4 (05:23→21:05)
[2017-12-20 05:58] LABS: PLATELET COUNT 279 10^3/uL (150-400)
--- NOTE | 2017-12-20 07:01 | SOAPPROG ---
SOAP Progress Note Assessment/Plan: Assessment: 77 yo F sp L4-S1 hardware removal, L5/S1 ALIF, L3-Iliac fusion POD 5 Oriented and comfortable this AM. She feels her right foot is stronger since surgery pain well controlled Plan: Needs post op baseline lumbar xrays today. PT/OT LSO brace when out of bed Optimize pain management while balancing with mental status. MsContin stopped UA negative, C-diff negative. Bx Cx NGTD, Appreciate medicine consultation H:H continue to monitor skin irritation/rash: K pad or cool therapy. Zyrtec for itching DVT prophx: TEDs, SCDs, Lovenox please call with neuro changes Work towards transfer to SNF/dispo planning once medical stable. Subjective: asleep, wakes easily, states pain she has no pain. Feels like her right foot is stronger since surgery Objective: Vital Signs Temp Pulse Resp BP Pulse Ox 36.4 C 114 H 16 107/71 93 12/20/17 04:00 12/20/17 04:00 12/20/17 04:00 12/20/17 04:00 12/20/17 04:00 Laboratory Results 12/20/17 05:20 12/20/17 05:20 12/19/17 12/20/17 12/21/17 05:59 05:59 05:59 Intake Total 300 1375 Output Total 1311 306 Balance -1011 1069 Neuro: A+OX 3 speech clear follows command sens +LT Dressing: CDI No BRITTANY ICD10 Worksheet Patient Problems: Problems Problem Status Onset Degenerative disc disease, lumbar Acute Fusion of spine of lumbar region Acute
[2017-12-20] MEDS: ACETAMINOPHEN 500 MG TAB PO SCH ×3 (07:48→21:04)
[2017-12-20] MEDS ORDERED: PROTOCOL POTASSIUM 1 DOSE MISC PRN (08:31)
[2017-12-20] MEDS: FAMOTIDINE 20 MG TAB PO SCH ×2 (08:37→21:03)
[2017-12-20] MEDS: METOPROLOL TARTRATE 25 MG TAB PO SCH ×2 (08:37→21:04)
[2017-12-20] MEDS: CETIRIZINE 10 MG TAB PO SCH (08:37)
[2017-12-20] MEDS: ENOXAPARIN 40 MG/0.4 ML SYR SC SCH (08:37)
[2017-12-20] MEDS: PREGABALIN 75 MG CAP PO SCH ×2 (08:38→21:03)
[2017-12-20] MEDS: FUROSEMIDE 20 MG TAB PO SCH (08:38)
[2017-12-20] MEDS: metFORMIN HCL 500 MG TAB PO SCH ×2 (08:38→18:02)
--- NOTE | 2017-12-20 08:38 | CPEKG ---
Test Reason : OPEN Blood Pressure : / mmHG Vent. Rate : 107 BPM Atrial Rate : 107 BPM P-R Int : 229 ms QRS Dur : 108 ms QT Int : 320 ms P-R-T Axes : 062 -43 040 degrees QTc Int : 427 ms Sinus tachycardia Prolonged HI interval Left anterior fascicular block Anterior infarct, old Confirmed by Asim Valdez ([id number]) on 12/20/2017 8:37:45 AM Referred By: Confirmed By:Asim Valdez
--- NOTE | 2017-12-20 10:38 | ASMTCMCOM ---
STEFANIE Note CM Note Notes: Spoke with Leanna in admissions from [facility] in [place] yesterday and she told me they are not on Allscripts. Faxed manually the face sheet,H and P, labs, therapy evals, and progress notes. Leanna's fax number is [phone]. has approved the family transporting the patient themselves back to [place]. We are awaiting [facility]'s acceptance of patient into their rehab program. CM will follow. Date Signed: 12/20/2017 10:37 AM Electronically Signed By:Merlene Bruno LCSW
--- NOTE | 2017-12-20 10:47 | HOSPPROG ---
Hospitalist Progress Note Assessment/Plan: Steffany Craig is a 77 y/o female w DDD who underwent an anterior-posterior fusion. Her mental status has been waxing and waning. She also developed a fever. *fever, resolved -lactate was elevated, but improved -ua shows no infectious etiology, chest x ray shows nothing acute, c diff negative, blood cx no growth -back wound doesn't appear infected *tachycardia, resolved -resume full dose of Metoprolol -the transfusion helped *hypotension -resolved *abla -improve w transfusion *DDD s/p L4-S1 hardware removal, L5/S1 ALIF, L3-Iliac fusion POD3 -slowly mobilizing *acute encephalopathy -resolve, note she has underlying sundowning at home *hyponatremia -resolved *fluid overloaded, hx of CHF -patient has significant generalized edema, is on Lasix at home (resumed this) -improved *rash/ localized reaction to possible iodine -much improved *RA -Rituxan is on hold *dvt prophylaxis: LMWH *plan: dc if she doesn't have ongoing tachycardia, she is much improved today Subjective: Steffany is feeling overall well today. Objective: Vital Signs Temp Pulse Resp BP Pulse Ox 37.0 C 98 18 137/69 H 90 L 12/20/17 07:23 12/20/17 08:37 12/20/17 07:23 12/20/17 08:37 12/20/17 07:23 Laboratory Results 12/20/17 05:20 12/20/17 05:20 12/19/17 12/20/17 12/21/17 05:59 05:59 05:59 Intake Total 300 1375 50 Output Total 1311 306 Balance -1011 1069 50 - Physical Exam Constitutional: no apparent distress, appears nourished, not in pain Eyes: PERRL Ears, Nose, Mouth, Throat: hearing normal Cardiovascular: regular rate and rhythym, No tachycardia Respiratory: no respiratory distress Skin: warm, No normal color (pale) Musculoskeletal: generalized weakness (ambulating in her room w walker) Neurologic: AAOx3 Psychiatric: interacting appropriately ICD10 Worksheet Patient Problems: Problems Problem Status Onset Degenerative disc disease, lumbar Acute Fusion of spine of lumbar region Acute
--- NOTE | 2017-12-20 15:26 | PDIAF ---
- Diagnosis Diagnosis: L4-S2 fusion for lumbar DJD, stenosis Code Status: Full Code - Medication Management Discharge Medications: Medications to Continue on Transfer Metoprolol Tartrate [Lopressor 50 mg (*)] 50 mg PO BID 09/13/14 [Last Taken 09/26 04:30] Acetaminophen [Tylenol ES 500 mg (*)] 500 mg PO Q6HRS PRN 08/30/17 [Last Taken 12/14/17 19:00] riTUXimab [Rituxan 500mg (*)] 0 mg IV .[id number] 08/30/17 [Last Taken 05/18/17] Calcium Carbonate [Oyster Shell Calcium 500 mg (*)] 500 mg PO DAILY 12/02/17 [ Last Taken 12/08/17] Cyanocobalamin [Vitamin B12 (*)] 1,000 mcg PO DAILY 12/02/17 [Last Taken ] Gabapentin [Neurontin 300 MG (*)] 300 mg PO TID 12/02/17 [Last Taken 12/13/17] Tobramycin 0.3% [Tobrex 0.3% opht drops (*)] 1 drops EACHEYE QID 12/02/17 [Last Taken 12/14/17] metFORMIN HCL [Glucophage 500 mg (*)] 500 mg PO BIDMEAL 12/02/17 [Last Taken 08/26 08:00] oxyCODONE IR [Oxycodone Ir (*)] 5 mg PO DAILY PRN 12/02/17 [Last Taken 12/14/17 22:00] traMADol [Ultram 50 mg (*)] 50 mg PO DAILY PRN 12/02/17 [Last Taken 12/01/17] Furosemide [Furosemide] 20 mg PO DAILY 12/18/17 [Last Taken Unknown] Discharge Medications: Refer to the Discharge Home Medication list for PRN reason. - Orders Services needed: Registered Nurse, Physical Therapy, Occupational Therapy Isolation Type: None Diet Recommendation: no restrictions on diet Diet Texture: Regular Texture Diet Santana: Yes Wound Care Instructions: check incision daily, Call Dr. Ellison if any drainage, redness pain or signs of infection Activity/Weight Bearing Restrictions: no bending, twisting or lifting over 10 lbs x 6 weeks. wear LSO When out of bed - Follow Up Care Current Providers and Referrals: ANGELINE MORRISON [Other]
--- NOTE | 2017-12-20 15:46 | ASMTCMCOM ---
CM Note CM Note Notes: Leanna with [facility] SNF can accept, needs pt there by 1400 tomorrow. Family thinks it best pt d/c tomorrow they spend the night along the way and pt arrive by 1399, voicemail left for Leanna asking if this is ok. Nsg PA updated and paperwork should be in for pt to d/c tomorrow morning. Still need to hear from Leanna its ok for pt to arrive . Date Signed: 12/20/2017 03:45 PM Electronically Signed By:MADDIE Yi
--- NOTE | 2017-12-20 16:07 | SOAPPROG ---
SOAP Progress Note Assessment/Plan: Assessment:no overnight issues. resting quietly. avss. comfortable. planning to drive back to [place] tomorrow and check into SNF there. No new concerns at this time. better night. still with confusion during nighttime. currently without pain. foot tingling better than preop. family looking into med-transport back to [place]. afebrile. P 100's. alert, comfortable, good skin color. abd soft. incis clean - approp ecchymosis/hyperemia, no erythema. s/p AP spinal revision. sundowning. tachy - asympt. clinically significantly improved overnight. ambulate/PT/OT. supportive family members at bedside. fever and confusion overnight with large diarrheal episode. currently resting quietly. states back better with calamine. afebrile/TM 38.8, BP 120's, P 110' s. skin color better. heart reg, tachy. lungs diminished bilat bases. abd nontender. incis clean. back incision clean, BRITTANY serosang. contact dermatitis less intense. s/p spine revision. suspect sundowning/atelectasis. medicine note appreciated. cont supportive care for now. await cultures. PT/OT. c/o severe back itch and discomfort secondary to ViDrape rash. no other new complaints. Afebrile. BP 130. comfortable. abd soft. incis clean. back incision clean - diffuse rectangular contact dermatitis (ViDrape placement). feet warm. pulses intact. slow progress. diet as able. calamine to rash. PT. no overnight events. pain well controlled. no nausea. afebrile. comfortable. abd soft, min dist. incis clean. s/p anterior spinal exposure. doing well. no specific postop issues noted. diet as able. activity as per NS. Plan: 12/16/17 09:12 12/17/17 09:01 12/18/17 06:53 12/19/17 08:06 12/20/17 16:06 Objective: Vital Signs Temp Pulse Resp BP Pulse Ox 36.4 C 88 14 107/54 L 92 12/20/17 15:09 12/20/17 16:03 12/20/17 16:03 12/20/17 15:09 12/20/17 16:03 Laboratory Results 12/20/17 05:20 12/20/17 05:20 12/19/17 12/20/17 12/21/17 05:59 05:59 05:59 Intake Total 300 1375 50 Output Total 1311 306 Balance -1011 1069 50 ICD10 Worksheet Patient Problems: Problems Problem Status Onset Degenerative disc disease, lumbar Acute Fusion of spine of lumbar region Acute
[2017-12-20] MEDS ORDERED: POTASSIUM CL 10 MEQ TAB PO ONE (22:20)
[2017-12-21] MEDS ORDERED: hydrOXYzine HCL 25 MG TAB PO ONE (00:05)
[2017-12-21] MEDS ORDERED: HALOPERIDOL LACT 5 MG/ML INJ IVP ONE (01:13)
[2017-12-21] MEDS: ACETAMINOPHEN 500 MG TAB PO SCH ×2 (05:23→12:38)
[2017-12-21] MEDS: TOBRAMYCIN 0.3% 5 ML OPHT.BTL EACHEYE SCH ×2 (05:30→13:08)
[2017-12-21] MEDS ORDERED: POTASSIUM CL 10 MEQ TAB PO ONE (07:23)
--- NOTE | 2017-12-21 07:47 | SOAPPROG ---
SOAP Progress Note Assessment/Plan: Assessment: 77 yo F sp L4-S1 hardware removal, L5/S1 ALIF, L3-Iliac fusion POD 6 Oriented and comfortable this AM, some confusion overnight. She feels her right foot is stronger since surgery pain well controlled. She is eager to leave for [place] rehab Plan: OK to shower this AM PT/OT LSO brace when out of bed Optimize pain management while balancing with mental status. MsContin stopped UA negative, C-diff negative. Bx Cx NGTD, Appreciate medicine consultation skin irritation/rash: K pad or cool therapy. Zyrtec for itching DVT prophx: TEDs, SCDs, Lovenox please call with neuro changes Work towards transfer to SNF this AM pending medical clearance. 12/21/17 07:47 Subjective: lying in bed, family present, comfortable denies new pain weakness or tingling she is ambulatory with walker Objective: Vital Signs Temp Pulse Resp BP Pulse Ox 37.1 C 104 H 16 142/78 H 92 12/21/17 03:14 12/21/17 03:14 12/21/17 03:14 12/21/17 03:14 12/21/17 06:31 Laboratory Results 12/21/17 04:48 12/21/17 04:48 12/20/17 12/21/17 12/22/17 05:59 05:59 05:59 Intake Total 1375 850 Output Total 306 150 Balance 1069 700 Neuro: A+ox4, follows commands, speech clear HERRING, sens decreased in feet (baseline) 5/5 bilat LE Dressing: CDI No BRITTANY ICD10 Worksheet Patient Problems: Problems Problem Status Onset Degenerative disc disease, lumbar Acute Fusion of spine of lumbar region Acute
[2017-12-21] MEDS: ENOXAPARIN 40 MG/0.4 ML SYR SC SCH (08:08)
[2017-12-21] MEDS: FUROSEMIDE 20 MG TAB PO SCH (08:09)
[2017-12-21] MEDS: metFORMIN HCL 500 MG TAB PO SCH (08:09)
[2017-12-21] MEDS: PREGABALIN 75 MG CAP PO SCH (08:09)
[2017-12-21] MEDS: FAMOTIDINE 20 MG TAB PO SCH (08:09)
[2017-12-21] MEDS: CETIRIZINE 10 MG TAB PO SCH (08:10)
[2017-12-21] MEDS: METOPROLOL TARTRATE 25 MG TAB PO SCH (08:12)
[2017-12-21] MEDS: SENNOSIDES/DOCUSATE SODIUM TAB PO SCH (08:13)
[2017-12-21 08:14] VITALS: BP 103/72
[2017-12-21] MEDS: POLYETHYLENE GLYCOL 3350 17 GM PKT PO SCH (08:14)
--- NOTE | 2017-12-21 09:13 | HOSPPROG ---
Hospitalist Progress Note Assessment/Plan: Steffany Craig is a 77 y/o female w DDD who underwent an anterior-posterior fusion. Her mental status has been waxing and waning. She also developed a fever. *fever, resolved -lactate was elevated, but improved -ua shows no infectious etiology, chest x ray shows nothing acute, c diff negative, blood cx no growth -back wound doesn't appear infected *tachycardia, resolved overall (tachycardic this morning but just received her beta akila) -resume full dose of Metoprolol -the transfusion helped *hypotension -resolved *abla -improve w transfusion *DDD s/p L4-S1 hardware removal, L5/S1 ALIF, L3-Iliac fusion POD3 -slowly mobilizing *acute encephalopathy -resolve, note she has underlying sundowning at home -occurred again last night, patient said she got scared and wasn't sure where she was, the tele monitor, O2 probe all made her feel tied down *hyponatremia -resolved *fluid overloaded, hx of CHF -patient has significant generalized edema, is on Lasix at home (resumed this) -improved *rash/ localized reaction to possible iodine -much improved *RA -Rituxan is on hold *dvt prophylaxis: LMWH *plan: dc if she doesn't have ongoing tachycardia , Heart rate <100, patient should f/u with her PCP about restless leg syndrome, may benefit from Requip Subjective: Steffany is feeling fine this morning, was afraid during the night. Objective: Vital Signs Temp Pulse Resp BP Pulse Ox 36.7 C 111 H 15 103/72 95 12/21/17 08:00 12/21/17 08:12 12/21/17 08:00 12/21/17 08:12 12/21/17 08:00 Laboratory Results 12/21/17 04:48 12/21/17 04:48 12/20/17 12/21/17 12/22/17 05:59 05:59 05:59 Intake Total 1375 850 Output Total 306 150 Balance 1069 700 - Physical Exam Constitutional: no apparent distress, appears nourished, obese Eyes: PERRL Ears, Nose, Mouth, Throat: hearing normal Cardiovascular: regular rate and rhythym, tachycardia Respiratory: no respiratory distress, reduced air movement Skin: warm, No normal color (pale) Musculoskeletal: generalized weakness Neurologic: AAOx3 Psychiatric: interacting appropriately ICD10 Worksheet Patient Problems: Problems Problem Status Onset Degenerative disc disease, lumbar Acute Fusion of spine of lumbar region Acute
[2017-12-21] MEDS: METHOCARBAMOL 750 MG TAB PO PRN (13:08)
--- NOTE | 2017-12-21 18:24 | ASMTLACE ---
LACE Length of stay for Answers: 7-13 days current admission Acuity / Level of Answers: Yes Care: Did the patient have an inpatient admission? Comorbidities - select Answers: Diabetes (uncontrolled or all that apply controlled) Opioid dependence / Chronic pain Other Notes: HTN # of Emergency department Answers: 0 visits in the last 6 months Social determinants Answers: Mental health diagnosis (anxiety, depression, pers onality disorders, etc.) Score: 17 Date Signed: 12/21/2017 03:24 PM Electronically Signed By:MADDIE Yi
--- NOTE | 2017-12-21 19:10 | ASDISCHSUM ---
Discharge Information Plan Status:SNF Medically Cleared to Leave: Discharge Date:12/21/2017 01:39 PM D/C Disposition:Snf Facility ADT D/C Disposition:Snf Facility Projected Discharge Date:12/21/2017 11:00 AM Transportation at D/C:Family Discharge Delay Reason: Follow-Up Date:12/21/2017 11:00 AM Discharge Slot: Final Diagnosis: Placement Information Referral Type:*Correction/SNF Referral ID:[facility]-[id number] Provider Name:[facility] Address 1:[address] Phone Number: Address 2: Fax Number: City:[place] Selection Factors: State:[place] Patient Contact Information Contact Name:LAMONTE Relationship:Daughter Address:[address] City: [facility] Phone: [facility] Code: Email: Financial Information Financial Class:Medicare Primary Plan Desc:MEDICARE INPATIENT Primary Plan Number:[id number] Secondary Plan Desc:[facility] Secondary Plan Number:[id number] Assessment Information LACE LACE Length of stay for Answers: 7-13 days current admission Acuity / Level of Answers: Yes Care: Did the patient have an inpatient admission? Comorbidities - select Answers: Diabetes (uncontrolled or all that apply controlled) Opioid dependence / Chronic pain Other Notes: HTN # of Emergency department Answers: 0 visits in the last 6 months Social determinants Answers: Mental health diagnosis (anxiety, depression, pers onality disorders, etc.) Score: 17 Date Signed: 12/21/2017 03:24 PM Electronically Signed By:MADDIE Yi [facility] CM Progress Note CM Note CM Note Notes: Chart reviewed. 77 year old female POD 1 s/p spinal hardware removal and fusion. Medically cleared to transfer to ortho neuro, PT and OT evaluations pending. Needs TBD at this time. Plan: TBD Date Signed: 12/16/2017 09:18 AM Electronically Signed By:Jackie Montgomery RN [facility] CM Progress Note CM Note CM Note Notes: PT/OT rec inpatient rehab. Spoke with pt Aime and dghtr Audra, they plan on d/c to [facility] SNF in [place]. Referral sent in [facility], this CM was unable reach anyone in admissions and was told the admissions staff do not work weekends, left a voicemail for d/c partner integration planner Leanna. Unknown if this SNF uses [employer]. Audra and Aime plan to transport pt to SNF in their private vehicle. CM to follow up with [facility] SNF Tuesday. D/c plan: SNF Date Signed: 12/17/2017 01:31 PM Electronically Signed By:MADDIE Yi [facility] CM Progress Note CM Note CM Note Notes: Spoke with patient's daughter and . They are unable to afford transport back to [place] by ambulance ($5000.00 out of pocket expense) and plan to transport the patient themselves in the family van. They have done this several times as patient has been here for several surgeries. We have not received a response from the [facility] SNF in [place], [place] yet. Patient required blood transfusion today and will not be ready for d/c for another day or so.CM will follow. Date Signed: 12/19/2017 11:42 AM Electronically Signed By:Merlene rBuno LCSW [facility] Progress Note CM Note CM Note Notes: Spoke with Leanna in admissions from [facility] in [place] yesterday and she told me they are not on Allscripts. Faxed manually the face sheet,H and P, labs, therapy evals, and progress notes. Leanna's fax number is [phone]. has approved the family transporting the patient themselves back to [place]. We are awaiting [facility]'s acceptance of patient into their rehab program. CM will follow. Date Signed: 12/20/2017 10:37 AM Electronically Signed By:Merlene Bruno LCSW [facility] Progress Note CM Note CM Note Notes: Leanna with [facility] SNF can accept, needs pt there by 1400 tomorrow. Family thinks it best pt d/c tomorrow they spend the night along the way and pt arrive by 1399, voicemail left for Leanna asking if this is ok. Nsg PA updated and paperwork should be in for pt to d/c tomorrow morning. Still need to hear from Leanna its ok for pt to arrive . Date Signed: 12/20/2017 03:45 PM Electronically Signed By:MADDIE Yi [facility] CM Progress Note CM Note CM Note Notes: Pt medically stable for d/c to [facility], orders faxed to [phone] and [phone]. Leanna confirms they are able to accept pt by 1400. Pt family till d/c today and sleep in a hotel half way today and get pt to rehab by 1400 on 12/22/17. PARESH Dan called report. Date Signed: 12/21/2017 03:27 PM Electronically Signed By:MADDIE Yi Intervention Information Intervention Type:*IM-Signed Date of Service:12/21/2017 11:48 AM Patient Type:Inpatient Staff Member:Scarlet Anderson Hours: Discipline: Severity: Comment:
== END 2017-12-21 13:39 | DRG 453 ==
LOC: F3N 05:38 → F2N 15:03 → F3N 12-16 11:20
PROVIDERS: ADMIT Neurological Surgery; ATTEND Neurological Surgery
PROC: 0SP30AZ Removal of Interbody Fusion Device from Lumbosacral Joint, Open Approach (ICD-10-PCS; principal; 2017-12-15 07:15)
PROC: 0SG30AJ Fusion of Lumbosacral Joint with Interbody Fusion Device, Posterior Approach, Anterior Column, Open Approach (ICD-10-PCS; principal; 2017-12-15 07:15)
PROC: 00NY0ZZ Release Lumbar Spinal Cord, Open Approach (ICD-10-PCS; principal; 2017-12-15 07:15)
PROC: 0SG3071 Fusion of Lumbosacral Joint with Autologous Tissue Substitute, Posterior Approach, Posterior Column, Open Approach (ICD-10-PCS; principal; 2017-12-15 07:15)
PROC: 0SG1071 Fusion of 2 or more Lumbar Vertebral Joints with Autologous Tissue Substitute, Posterior Approach, Posterior Column, Open Approach (ICD-10-PCS; principal; 2017-12-15 07:15)
PROC: 0SP00JZ Removal of Synthetic Substitute from Lumbar Vertebral Joint, Open Approach (ICD-10-PCS; principal; 2017-12-15 07:15)
PROC: 0SG10AJ Fusion of 2 or more Lumbar Vertebral Joints with Interbody Fusion Device, Posterior Approach, Anterior Column, Open Approach (ICD-10-PCS; principal; 2017-12-15 07:15)
PROC: 30233N1 Transfusion of Nonautologous Red Blood Cells into Peripheral Vein, Percutaneous Approach (ICD-10-PCS; 2017-12-19)
DX: T84.498A Other mechanical complication of other internal orthopedic devices, implants and grafts, initial encounter (principal); G93.49 Other encephalopathy; M96.0 Pseudarthrosis after fusion or arthrodesis; E87.1 Hypo-osmolality and hyponatremia; D62 Acute posthemorrhagic anemia; L23.89 Allergic contact dermatitis due to other agents; R00.0 Tachycardia, unspecified; I95.9 Hypotension, unspecified; M51.17 Intervertebral disc disorders with radiculopathy, lumbosacral region; I10 Essential (primary) hypertension; M06.9 Rheumatoid arthritis, unspecified
CPT/HCPCS: 97116-GP; 97162-GP; 97166-GO; 97530-GO; 97530-GP; 97535-GO; C1713; G8978-GP-CL; G8979-GP-CJ; G8987-GO-CK; G8988-GO-CI; J0171; J0690; J1170; J1630; J1650; J1940; J2250; J2270; J2274; J2370; J2704; J3010; J7060; P9016

== ENCOUNTER 2018-01-04 09:02 | Inpatient (IN) | payer OTHER, BC ==
[2018-01-04] MEDS ORDERED: ONDANSETRON 4 MG/2 ML VIAL IVP PRN (12:42)
[2018-01-04] MEDS ORDERED: ONDANSETRON DISINTEGRATING 4 MG TAB PO PRN (12:42)
[2018-01-04] MEDS ORDERED: HYDROCODONE/APAP 5/325 TAB PO PRN (12:42)
[2018-01-04] MEDS ORDERED: oxyCODONE IR 5 MG TAB PO PRN ×2 (12:42→16:07)
[2018-01-04] MEDS ORDERED: NS 1,000 ML IV SCH (12:45)
--- NOTE | 2018-01-04 13:30 | PDHOSCONS ---
History and Physical - Chief Complaint Nausea - History of Present Illness Steffany Craig is a 77 yo F with a PMHx of recent spinal fusion earlier this month , CHF, RA, T2DM who presents with nausea and decreased appetite. She reports that she was released from rehab last Tuesday and has been experiencing intermittent episodes of nausea. These episodes will come and go without anything that will make them worse or better. These episodes resolve on their own. She reports associated decreased appetite. She reports that she has been constipated lately. She took prune juice and had a loose BM yesterday morning. She denies abdominal pain, vomiting, chest pain, shortness of breath, fevers, chills. She has had some swelling in her legs for which she is supposed to take Lasix for. History Information - Allergies/Home Medication List Allergies/Adverse Reactions: levofloxacin [From Levaquin] Allergy (Severe, Verified 12/15/17 06:17) Rash diphenhydramine HCl [From Benadryl] Allergy (Intermediate, Verified 12/15/17 06: 17) RESTLESS LEGS sulfamethoxazole [From Bactrim] Allergy (Intermediate, Verified 12/15/17 06:17) Rash trimethoprim [From Bactrim] Allergy (Intermediate, Verified 12/15/17 06:17) Rash adhesive tape Allergy (Verified 12/15/17 06:17) Itching Iodine and Iodide Containing Produc Allergy (Verified 12/18/17 07:43) iodine Allergy (Uncoded 12/18/17 07:43) Home Medications: Metoprolol Tartrate [Lopressor 50 mg (*)] 50 mg PO BID 09/13/14 [Last Taken 09/26 04:30] riTUXimab [Rituxan 500mg (*)] 0 mg IV .[id number] 08/30/17 [Last Taken 05/18/17] Calcium Carbonate [Oyster Shell Calcium 500 mg (*)] 500 mg PO DAILY 12/02/17 [ Last Taken 12/08/17] Cyanocobalamin [Vitamin B12 (*)] 1,000 mcg PO DAILY 12/02/17 [Last Taken ] Tobramycin 0.3% [Tobrex 0.3% opht drops (*)] 1 drops EACHEYE QID 12/02/17 [Last Taken 12/14/17] metFORMIN HCL [Glucophage 500 mg (*)] 500 mg PO BIDMEAL 12/02/17 [Last Taken 08/26 08:00] Furosemide 20 mg PO DAILY 12/18/17 [Last Taken Unknown] I have personally reviewed and updated: family history, medical history, social history, surgical history - Past Medical History arthritis, CHF, hypertension - Surgical History Reports: cholecystectomy Additional surgical history: spinal surgery - Family History Additional family history: Parents - Social History Smoking Status: Never smoked Review of Systems Review of Systems: ROS: 10pt was reviewed & negative except for what was stated in HPI & below Physical Exam Physical Exam: Temp Pulse Resp BP Pulse Ox 36.6 C 79 16 155/99 H 96 01/04/18 11:53 01/04/18 11:53 01/04/18 11:53 01/04/18 11:53 01/04/18 11:53 Constitutional: no apparent distress Eyes: PERRL Ears, Nose, Mouth, Throat: moist mucous membranes Cardiovascular: regular rate and rhythym Respiratory: no respiratory distress, clear to auscultation Gastrointestinal: normoactive bowel sounds, soft, non-tender abdomen, No guarding, No rebound, No distension Genitourinary: no bladder tenderness Skin: warm Musculoskeletal: pain with ROM Neurologic: AAOx3 Psychiatric: interacting appropriately Assessment & Plan Assessment: Nausea - Intermittent episodes with decreased appetite - Denies abdominal pain, fever, chills, diarrhea, but does report constipation - Differential includes: Constipation, Gastroenteritis, Colitis, Diverticulitis , Gastroparesis, Postoperative abdominal wound infection - Continue PRN Zofran for nausea, if severe may switch to scheduled - Awaiting lab data including LFTs, she is s/p cholecystectomy - Would start with Abd XR to evaluate for obstruction, if positive start bowel regimen especially as opiates are ordered for patient - Can consider CT Abd to further evaluate given concern for postop abd wound infection - Surgery managing surgical aspect of care, Dr. Loya to be consulted - Afebrile on admission, await WBC count to determine if abx appropriate, would hold for now CHF - Pedal edema present on exam - Continue Lasix 20 mg qd, titrate as needed - Monitor BMP, I/O, daily weights T2DM - Hold home Metformin - Order SSI as inpatient RA - Would hold Rituxan in setting of possible infection - Continue pain medications PRN Thank you for the consult, please contact us with any questions/concerns. We will continue to follow patient throughout her hospitalization.
--- NOTE | 2018-01-04 13:32 | GHP ---
DATE OF ADMISSION: 01/04/2018 CHIEF COMPLAINT: Abdominal pain. HISTORY OF PRESENT ILLNESS: The patient is a 77-year-old female who had extensive thoracolumbar inst rumentation previously with Dr. Kaleb Ellison. 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 This exposure was done by Dr. Aime Loya. This was then followed by an L3 to iliac posterior inst rumentation and fusion. She did well postoperatively and was transferred back to [place], [place] in a fci facility. Over the course of the last several day, she has been having general abd ominal pain, nausea, bloating, and is generally not feeling well. She has had episodes of constipati on, but did have some prune juice, which resolved this. She has not had any anthony fevers or chills. She does have some ongoing surgical back pain, but no new lower extremity radicular pain. She denie s any new ataxia or bowel or bladder problems. PAST MEDICAL HISTORY: 1. Cataracts. 2. Sinus problem. 3. Hay fever. 4. Rheumatoid arthritis. 5. Hypertension. 6. GERD. 7. Hemorrhoids. 8. Hiatal hernia. 9. Psoriasis. 10. Peripheral neuropathy. 11. Depression. MEDICATIONS: Prior to admission are: Tylenol, albuterol, aspirin, bacitracin, oyster shells, Zyrtec , vitamin B12, doxycycline, Pepcid, Lasix, magnesium oxide, metformin, Robaxin, metolazone, metoprolo l, Zofran, oxycodone, nasal spray, MiraLAX, senna, tobramycin ophthalmic suspension. ALLERGIES: Levothyroxine, sulfa, trimethoprim, iodine, and Benadryl. FAMILY HISTORY: Patient has no family history of abdominal issues. SOCIAL HISTORY: Patient is with grown children. She denies smoking, drinking, or drug use. REVIEW OF SYSTEMS: Negative. PHYSICAL EXAM: GENERAL: Patient is a 77-year-old female lying in bed in a mild amount of distress. HEENT: Head, eyes, ears, nose, and throat are negative to drainage. EXTREMITIES: Kiel, warm, and dry. NEUROLOGIC: Patient is awake, alert, and oriented x4. Pupils equal, round, reactive to light. Extraocular motions are intact. There is no evidence of facial droop. Tongue and uvula are midlin e. Spinal accessory muscles are intact. Her motor strength is 5/5 in her arms and legs with the exc eption of the right plantar flexors and dorsiflexors, which are 4/5 and chronic for her. Her sensati on is grossly intact to light touch. Deep tendon reflexes are 1/4. SKIN: Her lumbar incision is cl re, dry, and intact with some mild scabbing. Her abdominal incision is slightly erythematous and mi ldly tender. DIAGNOSTIC DATA: Laboratory data from [facility] in [place], [place] on 01/03/2018, has a white blood cell count of 12.9, hemoglobin of 10.2, and platelet count of 506. Her lactic acid wa s 1.7. Her basic metabolic panel was mostly unremarkable with the exception of alkaline phosphatase, which was 158. Her AST and ALT were normal. Her bilirubin was normal. Her urinalysis from [facility] on 01/03/2018, did have a few bacteria and a few leukocyte esterase. CT scan of abdomen and pelvis from [place], [place] on 01/03/2018, shows postoperative changes from th e recent spine fusion. There is postoperative fluid in the anterior abdominal wall, presacral space and posterior soft tissues. IMPRESSION: This is a 77-year-old female who is approximately 2-1/2 weeks out from a posterior hardw are removal, followed by an L5-S1 anterior lumbar interbody fusion, and L3 iliac posterior instrument ation and fusion. She was transferred from [place], [place] with general abdominal pain, nausea, and some abdominal tenderness, which is suspicious for an abdominal wound infection. She currently is ne urologically stable. PLAN: All the above discussed in detail with the patient and her . This patient was seen and examined with Dr. Rosa present. At this point time, her lumbar wound appears well healed; however , our primary concern would be for an abdominal postoperative wound infection. At this point time, she will be admitted to [place] to the hospital and we will obtain more blood wor k, including CRP, ESR, and blood cultures. We will hold off on antibiotics until further evaluation. We have called Dr. Aime Loya to consult as well. The hospitalists have been consulted and they w ill help us with the patient's medical issues, and will make further treatment decisions based on the return of our laboratory data. /[id number]/MODL
[2018-01-04] MEDS: ACETAMINOPHEN 325 MG TAB PO PRN ×2 (14:25→18:43)
[2018-01-04] MEDS ORDERED: PROMETHAZINE HCL 25 MG/ML INJ IVP PRN (15:23)
[2018-01-04] MEDS ORDERED: BACITRACIN OINTMENT 1 PACKET TP PRN (16:07)
[2018-01-04] MEDS ORDERED: ALBUTEROL 3 ML DEYVIAL IH PRN (16:07)
[2018-01-04] MEDS ORDERED: OXYMETAZOLINE 30 ML NASAL SPRAY EACHNARE PRN (16:07)
[2018-01-04] MEDS ORDERED: LIDOCAINE 1% 5 ML SDV ONE (16:17)
[2018-01-04 17:52] LABS: PLATELET COUNT 561 10^3/uL (150-400)
[2018-01-04] MEDS: METHOCARBAMOL 750 MG TAB PO PRN ×2 (18:36→22:02)
--- NOTE | 2018-01-04 18:40 | GCON ---
REASON FOR ADMISSION: Abdominal pain, nausea. HISTORY OF PRESENT ILLNESS: A 77-year-old female status post an anterior retroperitoneal exposure fo r L5-S1 anterior lumbar interbody fusion along with posterior reinstrumentation and fusion. She was discharged a week and a half ago back to [place], [place] where she was initially in rehabilitation. She had been recovering reasonably well with adequate pain control since last week, and the patient r eports a generalized decline in clinical condition including abdominal pain, nausea, bloating, and se gela restless legs syndrome. She denies drainage from her back or abdominal incision. She denies vo iding complaints. She denies diarrhea. Her last bowel movement was a couple of days prior. She was seen in the emergency room in [place], [place] last evening. CT imaging disclosed probable postopera tive changes including an abdominal wall fluid collection as well as appropriate paraspinal fluid shanel nges. White count was 12,000. Urinalysis was with 3-5 white cells. Because of limited resources in her hometown, she opted to return to [place] ultimately via air flight for further treatment and carmita luation. At present time, the patient is reasonably comfortable. She is without active complaints o f nausea. Her pain is currently adequately controlled. PAST MEDICAL HISTORY: Arrhythmia, peptic ulcer disease, GERD, basal cell carcinoma, Sjogren syndrome , psoriatic arthropathy. PAST SURGICAL HISTORY: Multiple posterior spinal instrumentations as well as most recent anterior-po sterior procedure, laparoscopic cholecystectomy. MEDICATIONS: On admission, Lopressor, Rituxan, oyster shell calcium, vitamin B12, tobramycin, metfor min, Lasix. ALLERGIES: Levaquin, Benadryl, Bactrim, adhesive tape, iodine. SOCIAL HISTORY: No alcohol, no tobacco. She is . FAMILY HISTORY: Noncontributory. PHYSICAL EXAMINATION: VITAL SIGNS: Temperature 36.7, blood pressure 150/80, heart rate 100, respira tions 20. GENERAL: The patient is alert, appropriate, reasonably comfortable moving from the chair to bed. Skin color good. HEENT: Anicteric. NECK: No cervical lymphadenopathy. HEART: Regular. LUNGS: Clear. ABDOMEN: Soft with minimal incisional tenderness with appropriate induration and hy peremia. No fluctuance. Incision was initially attempted to be probed with a Q-tip with inability t o the puncture skin seal. BACK: Incision nicely healed. EXTREMITIES: Without edema. NEUROLOGIC: Alert and appropriate. SKIN: Without rashes. LABORATORY DATA: Repeat white count 10, hemoglobin 10, platelets of 560. Electrolytes within refere nce range. Urinalysis with 3-5 white cells, trace leukocyte esterase, 1-3 red blood cells, trace epi thelial cells. IMAGING: CT images from [place], [place] were directly reviewed on PACS. An abdominal wall seroma no kandy without intraluminal gas or wall enhancement. Appropriate posterior spinal fluid collections wit hout evidence of abscess. No other acute intraabdominal findings. IMPRESSION: Postoperative abdominal pain and nausea without definite clinical evidence of infection. Suspect probable generalized deconditioning. PLAN: The patient is being readmitted for fluid rehydration and further assessment pending clinical course. Her abdominal fluid collection was anesthetized with 1% lidocaine and aspirated for 100 cc o f clear serous fluid. She will be restarted on gabapentin for her restless legs syndrome. She repor ts this did help out better than her current regimen. It is safe to advance her diet as tolerated. Would hold off antibiotic administration at this time and care plan was reviewed with Wilbert Rosales. Kathleen mcdermott will continue to follow with you. /[id number]/MODL
[2018-01-04] MEDS: metFORMIN HCL 500 MG TAB PO SCH (19:09)
[2018-01-04] MEDS ORDERED: LORazepam 0.5 MG TAB PO ONE (19:30)
[2018-01-04] MEDS: GABAPENTIN 300 MG CAP PO SCH (19:43)
[2018-01-04] MEDS: POLYETHYLENE GLYCOL 3350 17 GM PKT PO SCH (21:55)
[2018-01-04] MEDS: FAMOTIDINE 20 MG TAB PO SCH (21:55)
[2018-01-04] MEDS: METOPROLOL TARTRATE 50 MG TAB PO SCH (21:55)
[2018-01-04] MEDS: TOBRAMYCIN 0.3% 5 ML OPHT.BTL EACHEYE SCH (21:56)
[2018-01-05] MEDS: TOBRAMYCIN 0.3% 5 ML OPHT.BTL EACHEYE SCH ×4 (04:51→20:10)
[2018-01-05 05:19] LABS: PLATELET COUNT 498 10^3/uL (150-400)
--- NOTE | 2018-01-05 06:45 | NEUSURGPN ---
Assessment/Plan: 77F s/p L5/S1 ALIF and L3-iliac fusion 12/15/17 -WBC down this morning -Bx pending -Continue Abx per medicine -Optimize pain management -PT/OT as tolerated -Please notify NS with any change in neuro/motor exam Subjective: Overall feeling improved. Denies any new leg pain, numbness, tingling, weakness Objective: NAD A&Ox3 MAEX4 5/5 and equal in BUE and BLE. Incision c/d/i Neurosurgery Physical Exam - Vitals, I&O, Labs I and O 01/04/18 01/05/18 01/06/18 05:59 05:59 05:59 Intake Total 2046 Output Total 700 Balance 1346 Weight 92.986 kg Intake: IV Intake (ml) 1023 IV Infused (ml) 1023 Ns 1,000 ml @ 100 mls/hr 1023 IV CONT ANDREA Rx#: [id number] Output: Urine (ml) 700 Toilet 700 Other: Intake Quantity Yes Sufficient Number of Voids Toilet 1 Vital Signs Temp Pulse Resp BP Pulse Ox 36.7 C 70 20 119/69 99 01/05/18 03:02 01/05/18 03:02 01/05/18 03:02 01/05/18 03:02 01/05/18 03:02 Laboratory Results 01/05/18 04:49 01/05/18 04:49 ICD10 Worksheet Patient Problems: Problems Problem Status Onset Degenerative disc disease, lumbar Acute Fusion of spine of lumbar region Acute
--- NOTE | 2018-01-05 08:50 | HOSPPROG ---
Hospitalist Progress Note Assessment/Plan: Nausea - Feeling improved this AM - Continue PRN Zofran and Phenergan for nausea, if severe may switch to scheduled - Continue bowel regimen especially as opiates are ordered for patient - S/p Fluid collection aspiration by Dr. Loya on 01/04, have not seen culture collection on EMR, blood cultures pending - Can consider CT Abd to further evaluate if ongoing concern for postop abd wound infection s/p aspiration - Continues to be afebrile on admission with no leukocytosis, agree with surgery to hold on abx for now - Advance diet as tolerated CHF - Pedal edema present on exam - Continue home Lasix and Metolazone, titrate as needed - Continue home Metoprolol - Monitor BMP, I/O, daily weights T2DM - Hold home Metformin, especially if CT with contrast is performed - Order SSI as inpatient RLS - Continue Gabapentin - This was switched to Lyrica after last hospitalization RA - Would hold Rituxan in setting of possible infection Thank you for the consult. Please contact us with questions. We will continue to follow patient throughout hospitalization. Subjective: Patient reports no nausea this morning, reports she has an appetite for food Objective: Vital Signs Temp Pulse Resp BP Pulse Ox 36.7 C 70 20 119/69 99 01/05/18 03:02 01/05/18 03:02 01/05/18 03:02 01/05/18 03:02 01/05/18 03:02 Laboratory Results 01/05/18 04:49 01/05/18 04:49 01/04/18 01/05/18 01/06/18 05:59 05:59 05:59 Intake Total 2046 Output Total 700 Balance 1346 - Physical Exam Constitutional: no apparent distress Eyes: PERRL Ears, Nose, Mouth, Throat: moist mucous membranes Cardiovascular: regular rate and rhythym Respiratory: no respiratory distress, clear to auscultation Gastrointestinal: soft, non-tender abdomen Genitourinary: no bladder fullness Skin: warm Musculoskeletal: no muscle tenderness Neurologic: AAOx3 Psychiatric: interacting appropriately ICD10 Worksheet Patient Problems: Problems Problem Status Onset Degenerative disc disease, lumbar Acute Fusion of spine of lumbar region Acute
[2018-01-05] MEDS: FAMOTIDINE 20 MG TAB PO SCH ×2 (09:03→20:10)
[2018-01-05] MEDS: CALCIUM CARBONATE 500 MG TAB PO SCH (09:03)
[2018-01-05] MEDS: GABAPENTIN 300 MG CAP PO SCH ×3 (09:03→20:10)
[2018-01-05] MEDS: FUROSEMIDE 40 MG TAB PO SCH (09:04)
[2018-01-05] MEDS: CYANO/VITAMIN B12 1000 MCG TAB PO SCH (09:04)
[2018-01-05] MEDS: METOLAZONE 5 MG TAB PO SCH (09:04)
[2018-01-05] MEDS: ASPIRIN 81 MG CHEWABLE TAB PO SCH (09:04)
[2018-01-05] MEDS: metFORMIN HCL 500 MG TAB PO SCH ×2 (09:04→17:51)
[2018-01-05] MEDS: MAGNESIUM OXIDE 400 MG TAB PO SCH (09:04)
[2018-01-05] MEDS: POLYETHYLENE GLYCOL 3350 17 GM PKT PO SCH ×3 (09:05→20:36)
[2018-01-05] MEDS: METOPROLOL TARTRATE 50 MG TAB PO SCH (09:05)
[2018-01-05] MEDS: CETIRIZINE 10 MG TAB PO SCH (09:05)
[2018-01-05] MEDS: ENOXAPARIN 40 MG/0.4 ML SYR SC SCH (09:05)
--- NOTE | 2018-01-05 12:11 | ASMTCMCOM ---
CM Note CM Note Notes: Pt lives in [place], had surgery here and then discharged to a rehab facility in [place] and then was discharged home. Pt returned to [facility] for suspected infection and had abd fluid aspiration. Spoke with pt and daughter in the room. Pt planning to discharge home independently and will drive back to [place] with family. No CM needs noted at this time. CM available should needs change. D/C Plan: Home independently Date Signed: 01/05/2018 12:10 PM Electronically Signed By:Renetta Schofield
[2018-01-05] MEDS ORDERED: NS 500 ML IV ONE (14:00)
--- NOTE | 2018-01-05 18:08 | SOAPPROG ---
SOAP Progress Note Assessment/Plan: Assessment/Plan: Improved. WBC now in normal range. Tolerating PO. Plan on going home tomorrow. Wound care discussed with patient and her . Patient seen and evaluated with Dr. Loya. 01/05/18 18:08 Subjective: Overall doing much better today. Nausea resolved. Has been tolerating regular diet today. Had bowel movement. No complaints of abdominal pain, shortness of breath, or chest pain. No other new concerns. Patient and her family anticipating d/c tomorrow. Objective: Vital Signs Temp Pulse Resp BP Pulse Ox 36.6 C 71 16 116/55 L 98 01/05/18 16:00 01/05/18 16:00 01/05/18 16:00 01/05/18 16:00 01/05/18 16:00 Laboratory Results 01/05/18 04:49 01/05/18 04:49 01/04/18 01/05/18 01/06/18 05:59 05:59 05:59 Intake Total 2046 Output Total 700 Balance 1346 Physical Exam: Gen: A&O x3, ambulating in room with walker, no acute distress HEENT: anicteric Skin: normal Heart: RRR Lungs: CTA bilateral Abdomen: soft, nontender, nondistended. Incision clean without erythema, minimal tenderness Extremities: minimal bilateral low leg edema ICD10 Worksheet Patient Problems: Problems Problem Status Onset Degenerative disc disease, lumbar Acute Fusion of spine of lumbar region Acute
[2018-01-06] MEDS: TOBRAMYCIN 0.3% 5 ML OPHT.BTL EACHEYE SCH (05:54)
--- NOTE | 2018-01-06 07:36 | NEUSURGPN ---
Assessment/Plan: 77F s/p L5/S1 ALIF and L3-iliac fusion 12/15/17 -Optimize pain management -PT/OT as tolerated -Discussed with Dr. Loya, will d/c patient this am. No signs of infection. -Rx for Neurontin provided -Please notify NS with any change in neuro/motor exam Subjective: Denies any new leg pain, numbness, tingling, weakness Objective: NAD A&Ox3 MAEX4 5/5 and equal in BUE and BLE. Incision c/d/i - Physician Discussed Patient with : Moe Neurosurgery Physical Exam - Vitals, I&O, Labs I and O 01/05/18 01/06/18 01/07/18 05:59 05:59 05:59 Intake Total 2046 Output Total 700 Balance 1346 Weight 92.986 kg Intake: IV Intake (ml) 1023 IV Infused (ml) 1023 Ns 1,000 ml @ 100 mls/hr 1023 IV CONT ANDREA Rx#: [id number] Output: Urine (ml) 700 Toilet 700 Other: Intake Quantity Yes Yes Sufficient Number of Voids Toilet 1 Number of Stools Toilet 1 Vital Signs Temp Pulse Resp BP Pulse Ox 36.7 C 68 16 108/45 L 92 01/06/18 04:00 01/06/18 04:00 01/06/18 04:00 01/06/18 04:00 01/06/18 04:00 Laboratory Results 01/05/18 04:49 01/05/18 04:49 ICD10 Worksheet Patient Problems: Problems Problem Status Onset Degenerative disc disease, lumbar Acute Fusion of spine of lumbar region Acute
--- NOTE | 2018-01-06 07:59 | PDMN ---
Medical Necessity Medical necessity: Change to IP, as of 01/05/18, per PA; los >2 mn for ongoing management of abdominal wound infection s/p aspiration w/ongoing nausea & generalized deconditioning; cxs pending; requiring further monitoring, IVFs, advancement of diet as tolerated & therapies; hx recent L5/S1 ALIF & L3-iliac fusion, CHF, RA on Rituxan, diabetes, sjogren syndrome, HTN
[2018-01-06 08:07] VITALS: BP 135/70
[2018-01-06] MEDS: GABAPENTIN 300 MG CAP PO SCH (08:24)
[2018-01-06] MEDS: CYANO/VITAMIN B12 1000 MCG TAB PO SCH (08:24)
[2018-01-06] MEDS: ASPIRIN 81 MG CHEWABLE TAB PO SCH (08:24)
[2018-01-06] MEDS: metFORMIN HCL 500 MG TAB PO SCH (08:25)
[2018-01-06] MEDS: CETIRIZINE 10 MG TAB PO SCH (08:25)
[2018-01-06] MEDS: MAGNESIUM OXIDE 400 MG TAB PO SCH (08:25)
[2018-01-06] MEDS: CALCIUM CARBONATE 500 MG TAB PO SCH (08:25)
[2018-01-06] MEDS: FAMOTIDINE 20 MG TAB PO SCH (08:25)
[2018-01-06] MEDS: POLYETHYLENE GLYCOL 3350 17 GM PKT PO SCH (08:26)
[2018-01-06] MEDS: METOLAZONE 5 MG TAB PO SCH (08:27)
[2018-01-06] MEDS: FUROSEMIDE 40 MG TAB PO SCH (08:27)
[2018-01-06] MEDS ORDERED: METOPROLOL TARTRATE 25 MG TAB PO SCH (09:00)
--- NOTE | 2018-01-06 09:22 | ASDISCHSUM ---
Discharge Information Plan Status:Home with No Needs Medically Cleared to Leave:01/06/2018 Discharge Date:01/06/2018 CM D/C Disposition:Home, Routine, Self-Care ADT D/C Disposition: Projected Discharge Date:01/06/2018 12:00 AM Transportation at D/C:Family Discharge Delay Reason: Follow-Up Date:01/06/2018 12:00 AM Discharge Slot: Final Diagnosis:abd fluid collection Placement Information Patient Contact Information Contact Name:LAMONTE Relationship:Daughter Address:[address] City: [place] Phone: [facility]/Zip Code: Email: Financial Information Financial Class:Medicare Primary Plan Desc:MEDICARE OUTPATIENT Primary Plan Number:[id number] Secondary Plan Desc:[facility]ICINE [facility] Secondary Plan Number:[id number] Assessment Information [facility] CM Progress Note CM Note CM Note Notes: Pt lives in [place], had surgery here and then discharged to a rehab facility in [place] and then was discharged home. Pt returned to [facility] for suspected infection and had abd fluid aspiration. Spoke with pt and daughter in the room. Pt planning to discharge home independently and will drive back to [place] with family. No CM needs noted at this time. CM available should needs change. D/C Plan: Home independently Date Signed: 01/05/2018 12:10 PM Electronically Signed By:Renetta Schofield Case Management Discharge Plan Note Case Management Discharge Discharge Order Complete? Answers: Yes Patient to Obtain Answers: via Family Medications Transportation Arranged Answers: Family/Friends Family Notified Answers: Yes Notes: in the room Discharge Comments Notes: Spoke with pt's RN. Pt to discharge home independently with family who will drive her back to [place]. No further CM needs noted at this time. 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
[2018-01-06] MEDS: ENOXAPARIN 40 MG/0.4 ML SYR SC SCH (09:54)
== END 2018-01-06 09:40 | disposition home or self-care (01) | DRG 948 ==
LOC: F3E 11:53 → OBSVTOIN 01-05 18:29
PROVIDERS: ADMIT Neurological Surgery; ATTEND Neurological Surgery
PROC: 0W9G3ZZ Drainage of Peritoneal Cavity, Percutaneous Approach (ICD-10-PCS; principal; 2018-01-04)
DX: R18.8 Other ascites (principal); G89.18 Other acute postprocedural pain; Z98.1 Arthrodesis status; I11.0 Hypertensive heart disease with heart failure; I50.9 Heart failure, unspecified; M06.9 Rheumatoid arthritis, unspecified; K21.9 Gastro-esophageal reflux disease without esophagitis; M35.00 Sjogren syndrome, unspecified; Z85.820 Personal history of malignant melanoma of skin; E11.9 Type 2 diabetes mellitus without complications
CPT/HCPCS: 97166-GO; 97535-GO; G0378; G0379; G8987-GO-CI; G8988-GO-CI; J1650; J2405; J2550